=== PATIENT | female | born 1935 | race Caucasian/White ===

== ENCOUNTER 2020-05-05 01:46 | Day surgery (SDC) | payer MEDICARE, OTHER ==
[2020-05-06] MEDS ORDERED: Lasix20 MG PO (16:45)
[2020-05-06] MEDS ORDERED: ELIQUIS5 MG PO (16:45)
[2020-05-06] MEDS ORDERED: OMEP20ER PO (16:45)
[2020-05-06] MEDS ORDERED: POTA10T PO (16:46)
[2020-05-06] MEDS ORDERED: CLIN300 PO (16:46)
[2020-05-06] MEDS ORDERED: DILT120 PO (16:46)
== END 2020-05-05 22:41 | disposition home or self-care (01) ==
LOC: WOUND 01:46
DX: S80.12XA Contusion of left lower leg, initial encounter (principal); S81.802A Unspecified open wound, left lower leg, initial encounter; I96 Gangrene, not elsewhere classified; I10 Essential (primary) hypertension; J44.9 Chronic obstructive pulmonary disease, unspecified; I48.91 Unspecified atrial fibrillation; I35.0 Nonrheumatic aortic (valve) stenosis; H26.9 Unspecified cataract; M19.90 Unspecified osteoarthritis, unspecified site; M06.9 Rheumatoid arthritis, unspecified; F17.210 Nicotine dependence, cigarettes, uncomplicated; Z88.0 Allergy status to penicillin; Z79.01 Long term (current) use of anticoagulants; Z79.899 Other long term (current) drug therapy; X58.XXXA Exposure to other specified factors, initial encounter

== ENCOUNTER 2020-05-07 09:52 | Day surgery (SDC) | payer MEDICARE, OTHER ==
[~2020-05-07] VITALS: Ht 167.6 cm; Wt 69.0 kg
[~2020-05-07 09:52] MED LIST: CLIN300 PO; DILT120 PO; ELIQUIS5 MG PO; Lasix20 MG PO; OMEP20ER PO; POTA10T PO
--- NOTE | 2020-05-07 13:27 | NUR ---
PT RETURNED TO RECOVERY ROOM IN A RECLINER. RIGHT RADIAL TR BAND SITE SOFT NON-TENDER WITH NO HEMATOMA, NO PULSATILE BLEEDING AND WRIST BOARD IN PLACE. PT DENIES CHEST PAIN. CALL LIGHT IN REACH AND PT DRINKING COFFEE.
--- NOTE | 2020-05-07 14:50 | NUR ---
FULL REPORT PROVIDED JESSICA JOHNSON TO ASSUME CARE OF PT IN RECOVERY ROOM.
--- NOTE | 2020-05-07 16:28 | NUR ---
IV DC'D, CATH INTACT. PT AND DAUGHTER VERBALIZED UNDERSTANDING OF DC INSTRUCTIONS AND FOLLOW UP INSTRUCTIONS. PT OUT TO CAR VIA W/C, SPLINT AND SLING IN PLACE ON RIGHT ARM.
== END 2020-05-07 23:14 | disposition home or self-care (01) ==
LOC: MHTC 09:52
PROC: B201YZZ Plain Radiography of Multiple Coronary Arteries using Other Contrast (ICD-10-PCS; principal; 2020-05-07)
PROC: 4A023N7 Measurement of Cardiac Sampling and Pressure, Left Heart, Percutaneous Approach (ICD-10-PCS; principal; 2020-05-07)
DX: I08.0 Rheumatic disorders of both mitral and aortic valves (principal); I27.20 Pulmonary hypertension, unspecified; I11.0 Hypertensive heart disease with heart failure; I50.9 Heart failure, unspecified; J44.9 Chronic obstructive pulmonary disease, unspecified; Z88.0 Allergy status to penicillin; Z79.899 Other long term (current) drug therapy; I48.91 Unspecified atrial fibrillation
CPT/HCPCS: 76937; 93454; 99152; 99153; C1769; C1894; J1644; J2250; J3010; J7030; J7050; Q9967

== ENCOUNTER 2020-05-19 00:17 | Day surgery (SDC) | payer MEDICARE, OTHER | END 2020-05-19 22:47 | disposition home or self-care (01) | LOC: WOUND 00:17 | DX: S00-T88 Injury, poisoning and certain other consequences of external causes (principal); S81.812S Laceration without foreign body, left lower leg, sequela | CPT/HCPCS: G0463 ==

== ENCOUNTER 2020-05-26 00:40 | Day surgery (SDC) | payer MEDICARE, OTHER | END 2020-05-26 22:50 | disposition home or self-care (01) | LOC: WOUND 00:40 | DX: S00-T88 Injury, poisoning and certain other consequences of external causes (principal); S81.812S Laceration without foreign body, left lower leg, sequela | CPT/HCPCS: G0463 ==

== ENCOUNTER 2020-06-05 00:40 | Day surgery (SDC) | payer MEDICARE, OTHER | END 2020-06-05 23:09 | disposition home or self-care (01) | LOC: WOUND 00:40 | DX: S81.802A Unspecified open wound, left lower leg, initial encounter (principal); I96 Gangrene, not elsewhere classified; L97.822 Non-pressure chronic ulcer of other part of left lower leg with fat layer exposed; I87.2 Venous insufficiency (chronic) (peripheral); I49.9 Cardiac arrhythmia, unspecified; M19.90 Unspecified osteoarthritis, unspecified site; M06.9 Rheumatoid arthritis, unspecified; H26.9 Unspecified cataract; I10 Essential (primary) hypertension; J44.9 Chronic obstructive pulmonary disease, unspecified; I48.91 Unspecified atrial fibrillation; I35.0 Nonrheumatic aortic (valve) stenosis; Z88.0 Allergy status to penicillin; Z79.01 Long term (current) use of anticoagulants; Z79.899 Other long term (current) drug therapy; X58.XXXA Exposure to other specified factors, initial encounter ==

== ENCOUNTER 2020-06-16 01:07 | Day surgery (SDC) | payer MEDICARE, OTHER | END 2020-06-16 23:28 | disposition home or self-care (01) | LOC: WOUND 01:07 | DX: S00-T88 Injury, poisoning and certain other consequences of external causes (principal); S81.812S Laceration without foreign body, left lower leg, sequela | CPT/HCPCS: G0463 ==

== ENCOUNTER 2020-06-26 02:17 | Day surgery (SDC) | payer MEDICARE, OTHER | END 2020-06-26 23:08 | disposition home or self-care (01) | LOC: WOUND 02:17 | DX: S80.12XS Contusion of left lower leg, sequela (principal); S81.812D Laceration without foreign body, left lower leg, subsequent encounter; I10 Essential (primary) hypertension; J44.9 Chronic obstructive pulmonary disease, unspecified; Z79.899 Other long term (current) drug therapy | CPT/HCPCS: G0463 ==

== ENCOUNTER 2020-08-17 12:01 | Emergency (ER) | payer MEDICARE, OTHER ==
[~2020-08-17] VITALS: Ht 165.1 cm; Wt 63.5 kg
[2020-08-17 13:20] LABS: BASOPHILS ABSOLUTE AUTO 0.08 K/mm3 (0.00-0.23); BASOPHILS PERCENT AUTO 1 % (0-2); EOSINOPHILS ABSOLUTE AUTO 0.43 K/mm3 (0.00-0.68); EOSINOPHILS PERCENT AUTO 4 % (0-6); Hematocrit 26.9 % (33.0-51.0); Hemoglobin 8.3 g/dL (11.5-16.0); IMMATURE GRAN ABSOLUTE AUTO 0.04 K/mm3 (0.00-0.10); IMMATURE GRAN PERCENT AUTO 0 % (0-1); LYMPHOCYTES PERCENT AUTO 16 % (21-46); MONOCYTES ABSOLUTE AUTO 1.09 K/mm3 (0.16-1.47); MONOCYTES PERCENT AUTO 9 % (4-13); Mean Corpuscular HGB 25.6 pg (26.0-34.0); Mean Corpuscular HGB Conc 30.9 g/dL (31.5-36.5); Mean Corpuscular Volume 83 fL (80-100); Mean Platelet Volume 9.2 fL (9.1-12.4); NEUTROPHILS ABSOLUTE AUTO 8.25 K/mm3 (1.96-9.15); NEUTROPHILS PERCENT AUTO 70 % (41-73); Platelet Count 308 K/mm3 (150-400); RDW Coefficient Variation 17.8 % (11.7-14.2); RDW Standard Deviation 54.3 fL (35.1-46.3); Red Blood Cell Count 3.24 M/mm3 (3.80-5.20); White Blood Cell Count 11.79 K/mm3 (4.00-11.30)
[2020-08-17 13:26] LABS: Albumin, Blood 3.5 g/dL (3.4-5.0); Albumin/Globulin Ratio 0.9 (0.8-1.8); Bilirubin, Total 0.6 mg/dL (0.1-1.0); Bun/Creatinine Ratio 24.5 (12.0-20.0); Calcium, Blood 9.4 mg/dL (8.5-10.1); Creatinine, Blood 1.39 mg/dL (0.40-1.00); Globulin, Blood 3.7 g/dL (2.2-4.0); Total Protein, Blood 7.2 g/dL (6.4-8.2)
== END 2020-08-17 18:04 | disposition home or self-care (01) ==
LOC: ER 12:01
PROVIDERS: Emergency Medicine
DX: R55 Syncope and collapse (principal); N18.9 Chronic kidney disease, unspecified; D64.9 Anemia, unspecified; M19.011 Primary osteoarthritis, right shoulder; M19.041 Primary osteoarthritis, right hand; I25.10 Atherosclerotic heart disease of native coronary artery without angina pectoris; F17.210 Nicotine dependence, cigarettes, uncomplicated; Z88.0 Allergy status to penicillin; Z79.01 Long term (current) use of anticoagulants; Z79.899 Other long term (current) drug therapy
CPT/HCPCS: 36415; 70450; 72125; 73030; 73130; 80053; 83880; 84484; 85025; 93005; 93010; 93306; 99285-25; A9270

== ENCOUNTER 2020-08-27 11:46 | Emergency (ER) | payer MEDICARE, OTHER ==
[~2020-08-27] VITALS: Ht 165.1 cm; Wt 64.4 kg
[2020-08-27 12:52] LABS: BASOPHILS ABSOLUTE AUTO 0.11 K/mm3 (0.00-0.23); BASOPHILS PERCENT AUTO 1 % (0-2); EOSINOPHILS ABSOLUTE AUTO 0.68 K/mm3 (0.00-0.68); EOSINOPHILS PERCENT AUTO 6 % (0-6); Hematocrit 29.2 % (33.0-51.0); Hemoglobin 9.1 g/dL (11.5-16.0); IMMATURE GRAN ABSOLUTE AUTO 0.04 K/mm3 (0.00-0.10); IMMATURE GRAN PERCENT AUTO 0 % (0-1); LYMPHOCYTES ABSOLUTE AUTO 2.03 K/mm3 (0.84-5.20); LYMPHOCYTES PERCENT AUTO 18 % (21-46); MONOCYTES ABSOLUTE AUTO 0.91 K/mm3 (0.16-1.47); MONOCYTES PERCENT AUTO 8 % (4-13); Mean Corpuscular HGB Conc 31.2 g/dL (31.5-36.5); Mean Corpuscular Volume 83 fL (80-100); Mean Platelet Volume 8.6 fL (9.1-12.4); NEUTROPHILS PERCENT AUTO 67 % (41-73); Platelet Count 352 K/mm3 (150-400); RDW Standard Deviation 55.2 fL (35.1-46.3); White Blood Cell Count 11.57 K/mm3 (4.00-11.30)
[2020-08-27 13:11] LABS: Source, Urine Voided
[2020-08-27 13:17] LABS: Alanine Aminotransfer (ALT/SGP 20 U/L (12-78); Albumin, Blood 3.4 g/dL (3.4-5.0); Alk Phos 93 U/L (50-136); Anion Gap 6 mmol/L (6-16); Aspartate Aminotrans (AST/SGOT 21 U/L (12-37); Bilirubin, Total 0.5 mg/dL (0.1-1.0); Blood Urea Nitrogen 45 mg/dL (8-24); Bun/Creatinine Ratio 30.8 (12.0-20.0); CO2, Blood 24 mmol/L (21-32); Calcium, Blood 9.1 mg/dL (8.5-10.1); Chloride, Blood 110 mmol/L (98-108); Creatinine, Blood 1.46 mg/dL (0.40-1.00); Globulin, Blood 3.5 g/dL (2.2-4.0); Glomerular Filtration Rate 36 (60-); Glucose, Blood 126 mg/dL (70-99); Potassium, Blood 4.4 mmol/L (3.5-5.5); Sodium, Blood 140 mmol/L (136-145); Total Protein, Blood 6.9 g/dL (6.4-8.2); Troponin I <0.015 ng/mL (0.000-0.040)
[2020-08-27 13:19] LABS: Bilirubin, Urine Neg (Neg); Blood, Urine Neg (Neg); Glucose Qualitative, Urine Neg (Neg); Ketones, Urine Neg (Neg); Leukocyte Esterase, Urine 2+ (Neg); Nitrite, Urine Neg (Neg); Protein, Urine 1+ (Neg); Specific Gravity, Urine 1.015 (1.003-1.022); Urobilinogen, Urine NORM (Normal); pH, Urine 6.5 (5.0-8.0)
[2020-08-27 13:22] LABS: Appearance, Urine Clear (Clear); Color, Urine Yellow (P-Yellow)
[2020-08-27 13:25] LABS: Red Blood Cells, Urine 0-2 /hpf (0-2); Squamous Epithelial Cells Few /hpf (Few)
[2020-08-27 13:26] LABS: Bacteria Mod /hpf
== END 2020-08-27 16:33 | disposition home or self-care (01) ==
LOC: ER 11:46
PROVIDERS: Emergency Medicine
DX: R55 Syncope and collapse (principal); I25.10 Atherosclerotic heart disease of native coronary artery without angina pectoris; I48.91 Unspecified atrial fibrillation; J44.9 Chronic obstructive pulmonary disease, unspecified; F17.210 Nicotine dependence, cigarettes, uncomplicated; Z88.0 Allergy status to penicillin; Z79.01 Long term (current) use of anticoagulants; Z79.899 Other long term (current) drug therapy
CPT/HCPCS: 36415; 71045; 80053; 81001; 83880; 84484; 85025; 87086; 93005; 93010; 99284-25

== ENCOUNTER 2021-02-25 00:21 | Day surgery (SDC) | payer MEDICARE, OTHER ==
[2021-02-25] MEDS ORDERED: AMLO5 PO (15:11)
[2021-02-25] MEDS ORDERED: MAGNESIUM OXID500 MG PO (15:12)
== END 2021-02-25 15:15 | disposition home or self-care (01) ==
LOC: ATC 00:21
DX: D50.9 Iron deficiency anemia, unspecified (principal); J44.9 Chronic obstructive pulmonary disease, unspecified; I48.0 Paroxysmal atrial fibrillation; I73.9 Peripheral vascular disease, unspecified; I50.9 Heart failure, unspecified; I13.0 Hypertensive heart and chronic kidney disease with heart failure and stage 1 through stage 4 chronic kidney disease, or unspecified chronic kidney disease; N18.30 Chronic kidney disease, stage 3 unspecified; I35.0 Nonrheumatic aortic (valve) stenosis; I27.20 Pulmonary hypertension, unspecified; F17.200 Nicotine dependence, unspecified, uncomplicated; Z88.0 Allergy status to penicillin; Z79.01 Long term (current) use of anticoagulants; Z86.711 Personal history of pulmonary embolism; Z96.649 Presence of unspecified artificial hip joint
CPT/HCPCS: 96365; J2916

== ENCOUNTER 2021-03-04 00:14 | Day surgery (SDC) | payer MEDICARE, OTHER ==
[~2021-03-04 00:14] MED LIST changes: +AMLO5 PO; +MAGNESIUM OXID500 MG PO
== END 2021-03-04 15:30 | disposition home or self-care (01) ==
LOC: ATC 00:14
DX: D50.9 Iron deficiency anemia, unspecified (principal); I13.0 Hypertensive heart and chronic kidney disease with heart failure and stage 1 through stage 4 chronic kidney disease, or unspecified chronic kidney disease; N18.30 Chronic kidney disease, stage 3 unspecified; I50.9 Heart failure, unspecified; F17.210 Nicotine dependence, cigarettes, uncomplicated; J44.9 Chronic obstructive pulmonary disease, unspecified; M19.90 Unspecified osteoarthritis, unspecified site; I83.93 Asymptomatic varicose veins of bilateral lower extremities; K21.9 Gastro-esophageal reflux disease without esophagitis; M81.0 Age-related osteoporosis without current pathological fracture; Z79.01 Long term (current) use of anticoagulants; Z88.0 Allergy status to penicillin
CPT/HCPCS: 96365; J2916

== ENCOUNTER 2021-03-11 01:00 | Day surgery (SDC) | payer MEDICARE, OTHER | END 2021-03-11 15:19 | disposition home or self-care (01) | LOC: ATC 01:00 | DX: D50.9 Iron deficiency anemia, unspecified (principal); N18.30 Chronic kidney disease, stage 3 unspecified; I48.0 Paroxysmal atrial fibrillation; Z79.01 Long term (current) use of anticoagulants; Z88.0 Allergy status to penicillin; Z79.899 Other long term (current) drug therapy | CPT/HCPCS: 96365; J2916 ==

== ENCOUNTER 2021-03-18 00:53 | Day surgery (SDC) | payer MEDICARE, OTHER | END 2021-03-18 11:18 | disposition home or self-care (01) | LOC: ATC 00:53 | DX: D50.9 Iron deficiency anemia, unspecified (principal); J44.9 Chronic obstructive pulmonary disease, unspecified; I48.0 Paroxysmal atrial fibrillation; I73.9 Peripheral vascular disease, unspecified; I13.0 Hypertensive heart and chronic kidney disease with heart failure and stage 1 through stage 4 chronic kidney disease, or unspecified chronic kidney disease; I50.9 Heart failure, unspecified; N18.30 Chronic kidney disease, stage 3 unspecified; I27.20 Pulmonary hypertension, unspecified; F17.200 Nicotine dependence, unspecified, uncomplicated; K21.9 Gastro-esophageal reflux disease without esophagitis; Z88.0 Allergy status to penicillin; Z79.01 Long term (current) use of anticoagulants; Z96.649 Presence of unspecified artificial hip joint | CPT/HCPCS: 96365; J2916 ==

== ENCOUNTER → 2021-07-13 | Outpatient (CLI) | payer MEDICARE, OTHER ==
[2021-07-13 15:17] LABS: BASOPHILS ABSOLUTE AUTO 0.04 K/mm3 (0.00-0.23); BASOPHILS PERCENT AUTO 0 % (0-2); EOSINOPHILS ABSOLUTE AUTO 0.08 K/mm3 (0.00-0.68); EOSINOPHILS PERCENT AUTO 1 % (0-6); Hematocrit 35.9 % (33.0-51.0); Hemoglobin 11.5 g/dL (11.5-16.0); IMMATURE GRAN ABSOLUTE AUTO 0.05 K/mm3 (0.00-0.10); IMMATURE GRAN PERCENT AUTO 0 % (0-1); LYMPHOCYTES ABSOLUTE AUTO 1.24 K/mm3 (0.84-5.20); LYMPHOCYTES PERCENT AUTO 10 % (21-46); MONOCYTES ABSOLUTE AUTO 0.58 K/mm3 (0.16-1.47); MONOCYTES PERCENT AUTO 5 % (4-13); Mean Corpuscular HGB 29.3 pg (26.0-34.0); Mean Corpuscular Volume 92 fL (80-100); Mean Platelet Volume 8.5 fL (9.1-12.4); NEUTROPHILS ABSOLUTE AUTO 9.89 K/mm3 (1.96-9.15); NEUTROPHILS PERCENT AUTO 83 % (41-73); Platelet Count 260 K/mm3 (150-400); RDW Coefficient Variation 15.8 % (11.7-14.2); RDW Standard Deviation 52.9 fL (35.1-46.3); Red Blood Cell Count 3.92 M/mm3 (3.80-5.20); White Blood Cell Count 11.88 K/mm3 (4.00-11.30)
[2021-07-13 15:24] LABS: Bun/Creatinine Ratio 17.1 (12.0-20.0); Calcium, Blood 8.9 mg/dL (8.5-10.1); Creatinine, Blood 1.4 mg/dL (0.40-1.00)
== END | disposition home or self-care (01) ==
LOC: LAB 15:13 → LAB SHORT 15:13
PROVIDERS: Physician Assistant Medical
DX: R19.7 Diarrhea, unspecified (principal)
CPT/HCPCS: 80048; 85025

== ENCOUNTER 2022-02-14 00:52 | Day surgery (SDC) | payer MEDICARE, OTHER ==
[~2022-02-14 00:52] MED LIST changes: +ATOR10 PO; +PRED5 PO
== END 2022-02-14 14:41 | disposition home or self-care (01) ==
LOC: ATC 00:52
DX: D50.9 Iron deficiency anemia, unspecified (principal)
CPT/HCPCS: 96365; J2916

== ENCOUNTER 2022-02-21 01:02 | Day surgery (SDC) | payer MEDICARE, OTHER | END 2022-02-21 14:53 | disposition home or self-care (01) | LOC: ATC 01:02 | DX: D50.9 Iron deficiency anemia, unspecified (principal); Z88.0 Allergy status to penicillin; Z88.8 Allergy status to other drugs, medicaments and biological substances; M19.90 Unspecified osteoarthritis, unspecified site; J44.9 Chronic obstructive pulmonary disease, unspecified; I13.0 Hypertensive heart and chronic kidney disease with heart failure and stage 1 through stage 4 chronic kidney disease, or unspecified chronic kidney disease; N18.30 Chronic kidney disease, stage 3 unspecified; I50.9 Heart failure, unspecified; I73.9 Peripheral vascular disease, unspecified; K21.9 Gastro-esophageal reflux disease without esophagitis; M35.3 Polymyalgia rheumatica; I48.91 Unspecified atrial fibrillation; Z79.01 Long term (current) use of anticoagulants; I25.10 Atherosclerotic heart disease of native coronary artery without angina pectoris | CPT/HCPCS: 96365; J2916 ==

== ENCOUNTER 2022-02-28 02:11 | Day surgery (SDC) | payer MEDICARE, OTHER | END 2022-02-28 14:55 | disposition home or self-care (01) | LOC: ATC 02:11 | DX: D50.9 Iron deficiency anemia, unspecified (principal); I25.10 Atherosclerotic heart disease of native coronary artery without angina pectoris; I48.91 Unspecified atrial fibrillation; I13.0 Hypertensive heart and chronic kidney disease with heart failure and stage 1 through stage 4 chronic kidney disease, or unspecified chronic kidney disease; I50.9 Heart failure, unspecified; N18.30 Chronic kidney disease, stage 3 unspecified; M35.3 Polymyalgia rheumatica; K21.9 Gastro-esophageal reflux disease without esophagitis; K76.0 Fatty (change of) liver, not elsewhere classified; J44.9 Chronic obstructive pulmonary disease, unspecified; D68.59 Other primary thrombophilia; R41.81 Age-related cognitive decline; Z79.01 Long term (current) use of anticoagulants | CPT/HCPCS: J2916 ==

== ENCOUNTER 2022-03-17 14:50 | Inpatient (IN) | payer MEDICARE, OTHER ==
[~2022-03-17] VITALS: Ht 167.6 cm; Wt 68.5 kg
[2022-03-17 18:49] LABS: BASOPHILS ABSOLUTE AUTO 0.04 K/mm3 (0.00-0.23); BASOPHILS PERCENT AUTO 0 % (0-2); EOSINOPHILS ABSOLUTE AUTO 0.11 K/mm3 (0.00-0.68); EOSINOPHILS PERCENT AUTO 1 % (0-6); Hematocrit 31.8 % (33.0-51.0); Hemoglobin 10.6 g/dL (11.5-16.0); IMMATURE GRAN ABSOLUTE AUTO 0.03 K/mm3 (0.00-0.10); IMMATURE GRAN PERCENT AUTO 0 % (0-1); LYMPHOCYTES ABSOLUTE AUTO 1.61 K/mm3 (0.84-5.20); LYMPHOCYTES PERCENT AUTO 16 % (21-46); MONOCYTES ABSOLUTE AUTO 1.07 K/mm3 (0.16-1.47); MONOCYTES PERCENT AUTO 10 % (4-13); Mean Corpuscular HGB 31.2 pg (26.0-34.0); Mean Corpuscular HGB Conc 33.3 g/dL (31.5-36.5); Mean Corpuscular Volume 94 fL (80-100); Mean Platelet Volume 8.6 fL (9.1-12.4); NEUTROPHILS PERCENT AUTO 72 % (41-73); Platelet Count 249 K/mm3 (150-400); RDW Coefficient Variation 14.2 % (11.7-14.2); RDW Standard Deviation 48.2 fL (35.1-46.3); White Blood Cell Count 10.36 K/mm3 (4.00-11.30)
[2022-03-17 19:34] LABS: Albumin, Blood 3.5 g/dL (3.4-5.0); Albumin/Globulin Ratio 1.2 (0.8-1.8); Bilirubin, Total 1.1 mg/dL (0.1-1.0); Bun/Creatinine Ratio 17.7 (12.0-20.0); Calcium, Blood 9.2 mg/dL (8.5-10.1); Creatinine, Blood 1.24 mg/dL (0.40-1.00); Potassium, Blood 4.4 mmol/L (3.5-5.5); Total Protein, Blood 6.5 g/dL (6.4-8.2)
--- NOTE | 2022-03-18 05:10 | NUR ---
ASSUMED CARE OF PT AT 1949. PT IS ALERT TO SELF AND PLACE ONLY. ARRIVES TO THE FLOOR AT 1950 AND IS AWAITING HIP SURGERY. HAS BEEN NPO SINCE MIDNIGHT. VITAL SIGNS STABLE. PT RESTS BETWEEN CARES AND IS ABLE TO SLEEP 8+ HOURS THIS SHIFT. NO COMPLAINTS OF PAIN, HAS PRN MORPHINE AVAILABLE. WILL CONTINUE TO MONITOR AND GIVE REPORT TO ONCOMING RN.
[2022-03-18] MEDS ORDERED: VITAMIN D31000 UNI1 PO (09:25)
[2022-03-18] MEDS ORDERED: CALCIUM CIT 311 EAC7 PO (09:25)
[2022-03-18] MEDS ORDERED: PRED1 PO (09:26)
[2022-03-18] MEDS ORDERED: Coq-1030 MG PO (09:26)
--- NOTE | 2022-03-18 10:47 | NUR ---
Spiritual Care Request. Followed up on spiritual care request. Pt. is awake and erlcomes my visit. CONNOR is present. After introductions CONNOR excuses himself. Pt. is pleasant. Pt. does display evidence of pain in her hip/thigh. Encourage Pt. with a calming presence and theraputic listening. Pt. displays evidence of agreement. Prayed with Pt. Pt. verbalized gratitude for the spiritual care visit.
[2022-03-18 11:22] LABS: Source, Urine Foley catheter
[2022-03-18 11:25] LABS: Appearance, Urine Hazy (Clear); Bilirubin, Urine Neg (Neg); Blood, Urine 5+ (Neg); Color, Urine Yellow (P-Yellow); Glucose Qualitative, Urine Neg (Neg); Ketones, Urine 3+ (Neg); Leukocyte Esterase, Urine 3+ (Neg); Nitrite, Urine Neg (Neg); Protein, Urine 2+ (Neg); Specific Gravity, Urine 1.015 (1.003-1.022); Urobilinogen, Urine NORM (Normal)
[2022-03-18 11:35] LABS: Red Blood Cells, Urine 25-50 /hpf (0-2); Squamous Epithelial Cells Rare /hpf (Few); White Blood Cells, Urine 25-50 /hpf (0-5)
[2022-03-18 11:36] LABS: Bacteria Mod /hpf
--- NOTE | 2022-03-18 16:04 | NUR ---
SHIFT SUMMARY: PT A/O X 2, BEDREST AT THIS TIME, PLEASANT AND COOPERATIVE. HIP PAIN CURRENTLY MANAGED WITH MORPHINE 2 MG. FAMILY PRESENT AT THIS TIME AND PT IS PLAYING CRIBBAGE. PT TO BE NPO AT [facility] FOR HIP REPLACEMENT PROCEDURE TOMORROW. WILL REPORT TO DOUGLAS LOPEZ TAKING OVER CARE.
--- NOTE | 2022-03-18 17:02 | NUR ---
ASSUMED CARE OF PATIENT AT 1630. PATIENT ALERT AND PLAYING CARDS WITH FAMILY MEMBER. RESTING IN BED. DENIES PAIN TO LEFT HIP, EXCEPT WITH MOVEMENT. BLE WARM, DENIES NUMBNESS BUT REPORTS SOME TINGLING.
--- NOTE | 2022-03-19 00:04 | NUR ---
PT WAKES UP CONFUSED AND DISORIENTED. PT REMOVES IV AND IS TRYING TO CLIMB OUT OF BED. PT WILL NOT LET STAFF PERFORM CARES, AND WILL NOT LET US PLACE NEW IV.
--- NOTE | 2022-03-19 05:38 | NUR ---
ASSUMED CARE OF PT AT 1900. PT IS ALERT TO SELF ONLY AND IS ON BEDREST. AWAITING SURGICAL REPAIR FOR A HIP FRACTURE, SCHEDULED FOR 1000 THIS MORNING, CSM IN ALL EXTREMITIES. PAIN IS MANAGED WITH PRN MORPHINE. DURING THE NIGHT PT WOKE AND WAS CONFUSED AND UNABLE TO STATE WHY THEY WERE IN THE HOSPITAL. PT HAD REMOVED IV IN L-AC, CANNULA WAS INTACT. NEW IV WAS PLACED IN R-AC. PT BP HAS BEEN ELEVATED, PRN HYDRALAZINE WAS GIVEN WITH GOOD RESULTS. PT ABLE TO SLEEP 5+ HOURS THIS SHIFT. WILL CONTINUE TO MONITOR AND GIVE REPORT TO DAYSHIFT RN.
--- NOTE | 2022-03-19 17:22 | NUR ---
SHIFT SUMMARY PT A/O X2; PLEASANT AND COOPERATIVE WITH CARE. PT'S FAMILY AT THE BEDSIDE TO HELP WITH CARE AND ORIENTATION. PT'S SURGERY MOVED TO TOMORROW DUE TO THE PT HAVING A UTI AND NEEDING A COURSE OF ABX PRIOR TO SURGERY. MACKENZIE PATENT AND DRAINING DARK URINE. BLOOD NOTED IN URINE. PT'S PAIN CONTROLLED PER EMR. PT TO BE NPO AT MIDNIGHT IN ORDER TO HAVE SURGERY TOMORROW.
[2022-03-20 04:45] LABS: BASOPHILS ABSOLUTE AUTO 0.04 K/mm3 (0.00-0.23); BASOPHILS PERCENT AUTO 0 % (0-2); EOSINOPHILS ABSOLUTE AUTO 0.26 K/mm3 (0.00-0.68); EOSINOPHILS PERCENT AUTO 2 % (0-6); Hematocrit 32.9 % (33.0-51.0); Hemoglobin 11.1 g/dL (11.5-16.0); IMMATURE GRAN ABSOLUTE AUTO 0.05 K/mm3 (0.00-0.10); IMMATURE GRAN PERCENT AUTO 1 % (0-1); LYMPHOCYTES ABSOLUTE AUTO 1.81 K/mm3 (0.84-5.20); LYMPHOCYTES PERCENT AUTO 17 % (21-46); MONOCYTES PERCENT AUTO 10 % (4-13); Mean Corpuscular HGB 31.2 pg (26.0-34.0); Mean Corpuscular HGB Conc 33.7 g/dL (31.5-36.5); Mean Corpuscular Volume 92 fL (80-100); Mean Platelet Volume 8.8 fL (9.1-12.4); NEUTROPHILS ABSOLUTE AUTO 7.53 K/mm3 (1.96-9.15); NEUTROPHILS PERCENT AUTO 70 % (41-73); Platelet Count 288 K/mm3 (150-400); RDW Coefficient Variation 13.8 % (11.7-14.2); RDW Standard Deviation 47.3 fL (35.1-46.3); Red Blood Cell Count 3.56 M/mm3 (3.80-5.20); White Blood Cell Count 10.79 K/mm3 (4.00-11.30)
[2022-03-20 05:09] LABS: Bilirubin, Total 0.8 mg/dL (0.1-1.0); Bun/Creatinine Ratio 27.7 (12.0-20.0); Calcium, Blood 8.7 mg/dL (8.5-10.1); Creatinine, Blood 0.98 mg/dL (0.40-1.00); Globulin, Blood 3.1 g/dL (2.2-4.0); Magnesium, Blood 2.4 mg/dL (1.6-2.4); Phosphorus, Blood 3.4 mg/dL (2.5-4.9); Potassium, Blood 4.3 mmol/L (3.5-5.5); Total Protein, Blood 6.1 g/dL (6.4-8.2)
--- NOTE | 2022-03-20 06:26 | NUR ---
SUMMARY PT ONLY COMPLAINT HAS BEEN HEADACHE. PT HAD ONLIY A MILD PERIOD OF CONFUSION LAST NIGHT. PT PLESANT AND COOPERATIVE. PT EAGER TO HAVE PROCEDURE TODAY.
--- NOTE | 2022-03-20 07:45 | NUR ---
0700-recvd report from previous RN flakito. pt sleeping, bed in lowest posiiton, bedrails up x 2, call light within reach 0735-this RN learned surgical intervention postponed to 03/21 r/t orthopedist on-call being up all last night doing emergent procedures. Dr. Damon and pt's daughter notifed. 0740-dr damon rounding on pt, notifed her of surgical procedure postponement. pt's daughter to visit.
[2022-03-20 09:27] LABS: SARS-Cov-2 (COVID-19) PCR, MMC NEGATIVE (NEGATIVE)
--- NOTE | 2022-03-20 13:48 | NUR ---
pt and daughter in room; provided pt with analgesia per mar.
--- NOTE | 2022-03-20 16:50 | NUR ---
SHIFT SUMMARY: A/O X 4, FORGETFUL AT TIMES BUT EASILY REORIENTED. VSS, NO ACUTE CHANGES. PT REPORTS PAIN CONTROLLED TO THE POINT THAT SHE IS ABLE TO SLEEP PER MAR. PT REPORTS IV NARCOTIC MADE HER "FEEL WEIRD" AND SHE DID NOT LIKE THIS. PT AND FAMILY PROVIDED WITH INFORMATION REGARDING PLAN TO MOVE PT TO RM 13 PRIOR TO SURGERY. THEY ALL AGREE WITH THIS PLAN. CAPILLARY REFILL AFFECTED LIMB <3 SECONDS. PT DENIES ANY N/V, TOLERATED PO INTAKE. MACKENZIE CATHETER PATENT/DRAINING CLEAR YELLOW URINE >350 ML THIS SHIFT. PT'S FAMILY VISITED T/O SHIFT.
--- NOTE | 2022-03-21 04:09 | NUR ---
SUMMARY PT PAIN MANAGED WELL. PT MACKENZIE DRAINING WELL. PT HAS BEEN NPO SINCE [place]. CALL LIGHT IN REACH AND BED ALARM ON.
--- NOTE | 2022-03-21 10:58 | NUR ---
CHANGED DRESSING TO RFA SKIN TEAR
--- NOTE | 2022-03-21 11:59 | NUR ---
NOTIFIED CARDIOLOGY TECH.
--- NOTE | 2022-03-21 12:54 | NUR ---
PT TO OR
--- NOTE | 2022-03-21 13:10 | NUR ---
RAC IV SITE D&I/FLUSHED WITH NS/PATENT
--- NOTE | 2022-03-21 14:07 | NUR ---
DC'D RIGHT AC IV.
--- NOTE | 2022-03-21 17:23 | NUR ---
PT ARRIVED TO UNIT FROM PACU SLEEPING SOUNDLY. VSS. RESPIRATIONS E/U ON 3L NC, 02 SATS 98%. DAUGHTER, ARACELI, AT BEDSIDE. AQUACEL DRESSING TO L POSTERIOR HIP CDI. SKIN TEAR TO RFA UNCOVERED UPON ARRIVAL TO ROOM, APPEARS TO HAVE BLISTER FORMED WHERE SKIN WAS OPEN TO TEAR. PLACED XEROFORM GAUZE AND KERLEX TO SITE AFTER CLEANING. BED ALARM ON.
--- NOTE | 2022-03-21 18:39 | NUR ---
SUMMARY NO ACUTE CHANGES SINCE ARRIVING FROM PACU TO FLOOR. PT AWOKE AT 1840, SMILING AND IN NO APPARENT DISTRESS. BED ALARM ON. DAUGHTER AT BEDSIDE.
[2022-03-22 06:13] LABS: BASOPHILS ABSOLUTE AUTO 0.02 K/mm3 (0.00-0.23); BASOPHILS PERCENT AUTO 0 % (0-2); EOSINOPHILS PERCENT AUTO 0 % (0-6); Hematocrit 31.3 % (33.0-51.0); Hemoglobin 10.5 g/dL (11.5-16.0); IMMATURE GRAN ABSOLUTE AUTO 0.04 K/mm3 (0.00-0.10); IMMATURE GRAN PERCENT AUTO 0 % (0-1); LYMPHOCYTES ABSOLUTE AUTO 0.91 K/mm3 (0.84-5.20); LYMPHOCYTES PERCENT AUTO 6 % (21-46); MONOCYTES ABSOLUTE AUTO 1.62 K/mm3 (0.16-1.47); MONOCYTES PERCENT AUTO 10 % (4-13); Mean Corpuscular HGB 30.9 pg (26.0-34.0); Mean Corpuscular HGB Conc 33.5 g/dL (31.5-36.5); Mean Corpuscular Volume 92 fL (80-100); Mean Platelet Volume 8.6 fL (9.1-12.4); NEUTROPHILS ABSOLUTE AUTO 13.14 K/mm3 (1.96-9.15); NEUTROPHILS PERCENT AUTO 84 % (41-73); Platelet Count 321 K/mm3 (150-400); RDW Coefficient Variation 13.4 % (11.7-14.2); RDW Standard Deviation 45.2 fL (35.1-46.3); White Blood Cell Count 15.73 K/mm3 (4.00-11.30)
--- NOTE | 2022-03-22 07:12 | NUR ---
SHIFT SUMMARY POD1 L HIP REPAIR, PT WAS ALERT BUT CONFUSED THIS SHIFT WHICH APPEARED TO GET WORSE THE SHIFT WENT ON. PT WAS NOT IMPULSIVE OR TRYING TO GET UP BUT WAS PARANOID THAT THE STAFF WAS HACKING INTO HER ACCOUNTS AND AFTER HER MONEY. ATTEMPTED TO CALM AND REASSURE PT THAT SHE WAS SAFE AND STAFF WAS ONLY HERE TO HELP. FAMILY MEMEBER CAME IN AND ALSO TRIED TO HELP CALM HER DOWN. RESTRAINT ORDER OBTAINED BUT WAS ABLE TO MAKE IT THROUGH WITHOUT HAVING TO USE THEM. AROUND 0600 PT STARTED TO CLEAR UP AND WAS MORE ORIENTED TO WHERE SHE WAS AND WHY SHE WAS HERE. FAMILY MEMEBER AT BEDSIDE NOW. NO OTHER EVENTS THIS SHIFT. CALL LIGHT IN REACH, REPORT GIVEN TO DAY RN.
--- NOTE | 2022-03-22 14:00 | NUR ---
FAMILY CONCERNS PT'S FAMILY HAS BEEN AT THE PATIENT'S BEDSIDE FOR SUPPORT AND ASSISTANCE T/O THE DAY. THEY HAVE ASKED QUESTIONS AND HAVE SOME CONCERNS. QUESTIONS ANSWERED AND DR. JOEL NOTIFIED OF CONCERNS. HE ROUNDED ON THE PATIENT AND ANSWERED FAMILY QUESTIONS. THIS RN CLARIFIED HOME MEDICATION WITH DR. JOEL. ALSO DISCUSSED FLUCTUATION IN BP AND HR UPON STANDING. TELE PLACED. PLAN TO CHECK ORTHOSTATIC VS. WILL CONTINUE TO MONITOR.
--- NOTE | 2022-03-22 17:39 | NUR ---
SHIFT SUMMARY PT IS POD#1 FROM L TED HIP WITH DR. HOWARD. PT HAS BEEN OOB TODAY WITH THERAPY AND IS A 1-2 PERSON MINIMAL ASSIST. PT HAS HAD SOME MILD CONFUSION T/O THE DAY, SHE REORIENTS EASILY. SHE FOLLOWS DIRECTIONS BUT IS SLOW TO UNDERSTAND AND REQUIRES REPEATED DIRECTIONS. PT REQUIRES VERBAL COACHING WHEN STANDING, WALKING AND TRANSFERRING TO REMEMBER HIP PRECAUTIONS. PT DID REPORT DIZZINESS WHEN GETTING OOB WITH THERAPY, PER THERAPIST BP BECAME ELEVATED AND HR DECREASED UPON STANDING, DR. JOEL NOTIFIED. PT PLACED ON TELE MONITOR AND ZIOPATCH ORDERED X2 WEEKS ([facility] NOTIFIED). PT IS AFIB VS AFLUTTER ON TELE, DR. JOEL AWARE. ORTHOSTATIC VS CHECKED THIS EVENING, BP DROPPED FROM 156 SYSTOLIC WHILE LYING TO 119 SYSTOLIC WHILE SITTING, UPON STANDING SBP IMPROVED TO 132; PT DENIED DIZZINESS AT THE TIME ORTHOSTATIC VS CHECKED. HR REMAINED STABLE. DNR STATUS VERIFIED WITH PT AND HER DAUGHTER ARACELI, ORDER VERIFIED WITH SEE LOPEZ PRIOR TO DNR BAND PLACEMENT. PAIN HAS BEEN MANAGED WITH TYLENOL, PT IS TOLERATING WELL, FAMILY ON BOARD WITH PAIN MANAGEMENT PLAN. PT HAS SAT UP TO THE CHAIR FOR MEALS TODAY AND TOLERATED WELL. FAMILY EDUCATED REGARDING IMPORTANCE OF OOB AND MOVEMENT. PT'S FAMILY HAS BEEN AT THE BEDSIDE MUCH OF THE DAY, THEY ARE SUPPORTIVE AND ASK QUESTIONS. FAMILY IS INVOLVED IN PT'S CARE, PT RESPONDS WELL TO FAMILY. WILL MONITOR UNTIL REPORT TO ANTONIO LOPEZ.
--- NOTE | 2022-03-23 05:02 | NUR ---
SHIFT SUMMARY A/O TO SELF AND SURROUNDINGS, USING CALL LIGHT APPROPRIATLEY. POD2 L HIP REPAIR, AQUACEL DRESSING CHANGED THIS SHIFT. NO PAIN REPORTED THROUGHOUT SHIFT. VITAL SIGNS STABLE. TOLERATING PO INTAKE AND VOIDING WELL. AMBULATING WELL W/ ONE ASSIST, FWW, AND GB. PT PLEASANT AND COOPERATIVE THIS SHIFT, WILL CONTINUE TO MONITOR AND REPORT TO ONCOMING RN.
[2022-03-23 06:01] LABS: BASOPHILS ABSOLUTE AUTO 0.03 K/mm3 (0.00-0.23); BASOPHILS PERCENT AUTO 0 % (0-2); EOSINOPHILS PERCENT AUTO 1 % (0-6); Hemoglobin 9.9 g/dL (11.5-16.0); IMMATURE GRAN ABSOLUTE AUTO 0.04 K/mm3 (0.00-0.10); IMMATURE GRAN PERCENT AUTO 0 % (0-1); LYMPHOCYTES ABSOLUTE AUTO 1.64 K/mm3 (0.84-5.20); LYMPHOCYTES PERCENT AUTO 12 % (21-46); MONOCYTES ABSOLUTE AUTO 1.75 K/mm3 (0.16-1.47); MONOCYTES PERCENT AUTO 13 % (4-13); Mean Corpuscular HGB 30.7 pg (26.0-34.0); Mean Corpuscular Volume 93 fL (80-100); Mean Platelet Volume 8.5 fL (9.1-12.4); NEUTROPHILS ABSOLUTE AUTO 9.89 K/mm3 (1.96-9.15); NEUTROPHILS PERCENT AUTO 74 % (41-73); Platelet Count 319 K/mm3 (150-400); RDW Coefficient Variation 13.7 % (11.7-14.2); RDW Standard Deviation 46.9 fL (35.1-46.3); Red Blood Cell Count 3.23 M/mm3 (3.80-5.20); White Blood Cell Count 13.45 K/mm3 (4.00-11.30)
[2022-03-23 11:06] LABS: SARS-Cov-2 (COVID-19) PCR, MMC NEGATIVE (NEGATIVE)
--- NOTE | 2022-03-23 11:40 | NUR ---
IV LFA D/C'D INTACT. SITE CLEAR.
--- NOTE | 2022-03-23 15:11 | NUR ---
DISCHARGE SUMMARY DISCUSSED GENERAL INFORMATION ABOUT SNF REHAB SERVICES WITH THE PATIENT AND HER DAUGHTER WHO HAD QUESTIONS ABOUT HOW LONG SHE WOULD BE THERE TO WHICH THIS RN TOLD HER IT WOULD DEPEND ON HOW SHE DOES WITH HER THERAPY. CALL WAS PLACED TO [facility] IN WHICH REPORT WAS GIVEN TO THE NUSE WHO WOULD BE TAKING CARE OF HER. PT PICKED UP BY [facility] ALEXANDRA CROSS
== END 2022-03-23 14:00 | DRG 522 ==
LOC: ER 14:50 → SURS 18:55
PROVIDERS: Family Medicine; Orthopaedic Surgery; ADMIT Internal Medicine
PROC: 0SRS0JZ Replacement of Left Hip Joint, Femoral Surface with Synthetic Substitute, Open Approach (ICD-10-PCS; principal; 2022-03-21 13:30)
DX: S72.012A Unspecified intracapsular fracture of left femur, initial encounter for closed fracture (principal); N39.0 Urinary tract infection, site not specified; I48.20 Chronic atrial fibrillation, unspecified; Z66 Do not resuscitate; Z20.822 Contact with and (suspected) exposure to COVID-19; F17.210 Nicotine dependence, cigarettes, uncomplicated; Z96.642 Presence of left artificial hip joint; M35.3 Polymyalgia rheumatica; I10 Essential (primary) hypertension; Z95.4 Presence of other heart-valve replacement; Z88.0 Allergy status to penicillin; Z79.01 Long term (current) use of anticoagulants; Z79.52 Long term (current) use of systemic steroids; Z79.899 Other long term (current) drug therapy; W18.39XA Other fall on same level, initial encounter
CPT/HCPCS: 36415; 51702; 71045; 72170; 73502; 73552; 73590; 80053; 81001; 83735; 84100; 85025; 87086; 92610; 93005; 93010; 93246; 94760; 97110; 97162; 97166; 97530; 97535; 99285-25; A9270; C1776; J0171; J0360; J0696; J0735; J1100; J1885; J2270; J2405; J2704; J2795; J3010; J7040; J7120; J7512; U0004

== ENCOUNTER 2022-04-19 12:49 | Emergency (ER) | payer MEDICARE, OTHER ==
[~2022-04-19] VITALS: Ht 167.6 cm; Wt 61.2 kg
[~2022-04-19 12:49] MED LIST changes: +CALCIUM CIT 311 EAC7 PO; +Coq-1030 MG PO; +PRED1 PO; +VITAMIN D31000 UNI1 PO
[2022-04-19 14:00] LABS: BASOPHILS ABSOLUTE AUTO 0.06 K/mm3 (0.00-0.23); BASOPHILS PERCENT AUTO 1 % (0-2); EOSINOPHILS ABSOLUTE AUTO 0.03 K/mm3 (0.00-0.68); EOSINOPHILS PERCENT AUTO 1 % (0-6); Hematocrit 25.7 % (33.0-51.0); Hemoglobin 8.3 g/dL (11.5-16.0); IMMATURE GRAN ABSOLUTE AUTO 0.02 K/mm3 (0.00-0.10); IMMATURE GRAN PERCENT AUTO 0 % (0-1); LYMPHOCYTES ABSOLUTE AUTO 1.13 K/mm3 (0.84-5.20); LYMPHOCYTES PERCENT AUTO 18 % (21-46); MONOCYTES ABSOLUTE AUTO 1.03 K/mm3 (0.16-1.47); MONOCYTES PERCENT AUTO 16 % (4-13); Mean Corpuscular HGB 31.6 pg (26.0-34.0); Mean Corpuscular HGB Conc 32.3 g/dL (31.5-36.5); Mean Corpuscular Volume 98 fL (80-100); Mean Platelet Volume 8.5 fL (9.1-12.4); NEUTROPHILS ABSOLUTE AUTO 4.08 K/mm3 (1.96-9.15); NEUTROPHILS PERCENT AUTO 64 % (41-73); Platelet Count 276 K/mm3 (150-400); RDW Coefficient Variation 15.5 % (11.7-14.2); RDW Standard Deviation 55.3 fL (35.1-46.3); Red Blood Cell Count 2.63 M/mm3 (3.80-5.20); White Blood Cell Count 6.35 K/mm3 (4.00-11.30)
[2022-04-19 14:22] LABS: Magnesium, Blood 2.2 mg/dL (1.6-2.4)
[2022-04-19 14:29] LABS: Albumin, Blood 3.2 g/dL (3.4-5.0); Bilirubin, Total 0.7 mg/dL (0.1-1.0); Bun/Creatinine Ratio 24.6 (12.0-20.0); Calcium, Blood 8.8 mg/dL (8.5-10.1); Creatinine, Blood 1.26 mg/dL (0.40-1.00); Globulin, Blood 3.1 g/dL (2.2-4.0); Potassium, Blood 4.2 mmol/L (3.5-5.5); Total Protein, Blood 6.3 g/dL (6.4-8.2)
[2022-04-19 15:53] LABS: Source, Urine Fem Cath
[2022-04-19 15:57] LABS: Appearance, Urine Clear (Clear); Bilirubin, Urine Neg (Neg); Blood, Urine Neg (Neg); Color, Urine Yellow (P-Yellow); Glucose Qualitative, Urine Neg (Neg); Ketones, Urine Neg (Neg); Leukocyte Esterase, Urine Neg (Neg); Nitrite, Urine Neg (Neg); Protein, Urine 2+ (Neg); Urobilinogen, Urine 1+ (Normal)
[2022-04-19 17:22] LABS: Red Blood Cells, Urine 0-2 /hpf (0-2); Squamous Epithelial Cells Rare /hpf (Few); White Blood Cells, Urine 0-2 /hpf (0-5)
[2022-04-19 17:23] LABS: Bacteria Few /hpf
== END 2022-04-19 17:49 | disposition home or self-care (01) ==
LOC: ER 12:49
PROVIDERS: Emergency Medicine; Physician Assistant
DX: E86.0 Dehydration (principal); I25.10 Atherosclerotic heart disease of native coronary artery without angina pectoris; J44.9 Chronic obstructive pulmonary disease, unspecified; I48.91 Unspecified atrial fibrillation; F17.210 Nicotine dependence, cigarettes, uncomplicated; Z79.899 Other long term (current) drug therapy; Z79.52 Long term (current) use of systemic steroids; Z79.01 Long term (current) use of anticoagulants; Z88.0 Allergy status to penicillin
CPT/HCPCS: 36415; 71045; 80053; 81001; 83735; 85025; 93005; 93010; 99285-25; P9612

== ENCOUNTER 2022-06-14 09:57 | Emergency (ER) | payer MEDICARE, OTHER ==
[~2022-06-14] VITALS: Ht 165.1 cm; Wt 61.2 kg
[2022-06-14] MEDS ORDERED: Ventolin/Prove6.7 GM INH (10:23)
[2022-06-14] MEDS ORDERED: IPRAT-ALBUT 0.5-3 ML INH (10:23)
[2022-06-14 15:15] LABS: BASOPHILS ABSOLUTE AUTO 0.06 K/mm3 (0.00-0.23); BASOPHILS PERCENT AUTO 1 % (0-2); EOSINOPHILS ABSOLUTE AUTO 0.18 K/mm3 (0.00-0.68); EOSINOPHILS PERCENT AUTO 2 % (0-6); Hematocrit 32.5 % (33.0-51.0); Hemoglobin 10.6 g/dL (11.5-16.0); IMMATURE GRAN ABSOLUTE AUTO 0.05 K/mm3 (0.00-0.10); IMMATURE GRAN PERCENT AUTO 0 % (0-1); LYMPHOCYTES PERCENT AUTO 17 % (21-46); MONOCYTES ABSOLUTE AUTO 0.86 K/mm3 (0.16-1.47); MONOCYTES PERCENT AUTO 8 % (4-13); Mean Corpuscular HGB 30.6 pg (26.0-34.0); Mean Corpuscular HGB Conc 32.6 g/dL (31.5-36.5); Mean Corpuscular Volume 94 fL (80-100); Mean Platelet Volume 9.2 fL (9.1-12.4); NEUTROPHILS ABSOLUTE AUTO 8.37 K/mm3 (1.96-9.15); NEUTROPHILS PERCENT AUTO 73 % (41-73); Platelet Count 236 K/mm3 (150-400); RDW Coefficient Variation 14.1 % (11.7-14.2); RDW Standard Deviation 47.8 fL (35.1-46.3); Red Blood Cell Count 3.46 M/mm3 (3.80-5.20); White Blood Cell Count 11.42 K/mm3 (4.00-11.30)
[2022-06-14 15:43] LABS: Albumin, Blood 3.6 g/dL (3.4-5.0); Albumin/Globulin Ratio 1.3 (0.8-1.8); Bilirubin, Total 0.9 mg/dL (0.1-1.0); Bun/Creatinine Ratio 26.1 (12.0-20.0); Calcium, Blood 8.9 mg/dL (8.5-10.1); Creatinine, Blood 1.15 mg/dL (0.40-1.00); Globulin, Blood 2.7 g/dL (2.2-4.0); Potassium, Blood 4.2 mmol/L (3.5-5.5); Total Protein, Blood 6.3 g/dL (6.4-8.2)
[2022-06-14 17:25] LABS: Source, Urine Clean Catch
[2022-06-14 17:36] LABS: Appearance, Urine Clear (Clear); Bilirubin, Urine Neg (Neg); Blood, Urine Neg (Neg); Color, Urine Yellow (P-Yellow); Glucose Qualitative, Urine Neg (Neg); Ketones, Urine Neg (Neg); Leukocyte Esterase, Urine 2+ (Neg); Nitrite, Urine Neg (Neg); Protein, Urine 1+ (Neg); Specific Gravity, Urine 1.015 (1.003-1.022); Urobilinogen, Urine NORM (Normal); pH, Urine 6.5 (5.0-8.0)
[2022-06-14 18:01] LABS: Bacteria Mod /hpf; Red Blood Cells, Urine 0-2 /hpf (0-2); Squamous Epithelial Cells Few /hpf (Few); White Blood Cells, Urine 0-2 /hpf (0-5)
[2022-06-14] MEDS ORDERED: CEPH500 PO (18:28)
== END 2022-06-14 19:01 | disposition home or self-care (01) ==
LOC: ER 09:57
PROVIDERS: Physician Assistant
DX: S81.812A Laceration without foreign body, left lower leg, initial encounter (principal); R42 Dizziness and giddiness; N39.0 Urinary tract infection, site not specified; S70.01XA Contusion of right hip, initial encounter; I25.10 Atherosclerotic heart disease of native coronary artery without angina pectoris; F17.210 Nicotine dependence, cigarettes, uncomplicated; J44.9 Chronic obstructive pulmonary disease, unspecified; Z95.2 Presence of prosthetic heart valve; Z88.0 Allergy status to penicillin; Z79.01 Long term (current) use of anticoagulants; Z79.899 Other long term (current) drug therapy; W05.0XXA Fall from non-moving wheelchair, initial encounter
CPT/HCPCS: 12004; 36415; 70450; 72125; 73502; 73590; 80053; 81001; 84484; 85025; 87086; 93005; 93010; 99285-25; A9270; J7030

== ENCOUNTER 2022-06-16 12:23 | Emergency (ER) | payer MEDICARE, OTHER ==
[~2022-06-16] VITALS: Ht 165.1 cm; Wt 61.2 kg
[~2022-06-16 12:23] MED LIST changes: +CEPH500 PO; +IPRAT-ALBUT 0.5-3 ML INH; +Ventolin/Prove6.7 GM INH
[2022-06-16 14:19] LABS: BASOPHILS ABSOLUTE AUTO 0.06 K/mm3 (0.00-0.23); BASOPHILS PERCENT AUTO 1 % (0-2); EOSINOPHILS ABSOLUTE AUTO 0.25 K/mm3 (0.00-0.68); EOSINOPHILS PERCENT AUTO 3 % (0-6); Hematocrit 27.1 % (33.0-51.0); Hemoglobin 8.7 g/dL (11.5-16.0); IMMATURE GRAN ABSOLUTE AUTO 0.03 K/mm3 (0.00-0.10); IMMATURE GRAN PERCENT AUTO 0 % (0-1); LYMPHOCYTES ABSOLUTE AUTO 1.77 K/mm3 (0.84-5.20); LYMPHOCYTES PERCENT AUTO 18 % (21-46); MONOCYTES ABSOLUTE AUTO 0.92 K/mm3 (0.16-1.47); MONOCYTES PERCENT AUTO 9 % (4-13); Mean Corpuscular HGB 30.5 pg (26.0-34.0); Mean Corpuscular HGB Conc 32.1 g/dL (31.5-36.5); Mean Corpuscular Volume 95 fL (80-100); NEUTROPHILS ABSOLUTE AUTO 7.01 K/mm3 (1.96-9.15); NEUTROPHILS PERCENT AUTO 70 % (41-73); Platelet Count 211 K/mm3 (150-400); RDW Coefficient Variation 14.3 % (11.7-14.2); RDW Standard Deviation 50.1 fL (35.1-46.3); Red Blood Cell Count 2.85 M/mm3 (3.80-5.20); White Blood Cell Count 10.04 K/mm3 (4.00-11.30)
[2022-06-16 14:25] LABS: Magnesium, Blood 2.3 mg/dL (1.6-2.4)
[2022-06-16 14:26] LABS: Albumin, Blood 3.1 g/dL (3.4-5.0); Albumin/Globulin Ratio 1.1 (0.8-1.8); Bilirubin, Total 0.8 mg/dL (0.1-1.0); Bun/Creatinine Ratio 20.6 (12.0-20.0); Calcium, Blood 8.2 mg/dL (8.5-10.1); Creatinine, Blood 1.26 mg/dL (0.40-1.00); Globulin, Blood 2.8 g/dL (2.2-4.0); Potassium, Blood 4.3 mmol/L (3.5-5.5); Total Protein, Blood 5.9 g/dL (6.4-8.2)
[2022-06-17 11:12] LABS: C-REACTIVE PROTEIN, EXT RANGE 4.42 mg/dL (0.000-0.300); Percent Saturation 12.7 % (15.0-50.0); Thyroid Stimulating Hormone 1.75 uIU/mL (0.360-4.800)
== END 2022-06-16 17:48 | disposition home or self-care (01) ==
LOC: ER 12:23
PROVIDERS: Emergency Medicine; Family Medicine
DX: E86.1 Hypovolemia (principal); I48.91 Unspecified atrial fibrillation; J44.9 Chronic obstructive pulmonary disease, unspecified; I25.10 Atherosclerotic heart disease of native coronary artery without angina pectoris; F17.210 Nicotine dependence, cigarettes, uncomplicated; Z88.0 Allergy status to penicillin; Z79.899 Other long term (current) drug therapy; Z79.01 Long term (current) use of anticoagulants
CPT/HCPCS: 80053; 82728; 83540; 83550; 83735; 84443; 84484; 85025; 85651; 86140; 93005; 93010; 93880; 96360; 99285-25; J7030

== ENCOUNTER → 2022-07-13 | Outpatient (CLI) | payer MEDICARE, OTHER ==
[2022-07-14 09:29] LABS: Stool Occult Bld Immuno 1 Negative (NEGATIVE)
== END ==
LOC: LAB 14:00 → LAB SHORT 14:00
PROVIDERS: Registered Nurse Oncology
DX: D50.9 Iron deficiency anemia, unspecified (principal); N18.9 Chronic kidney disease, unspecified
CPT/HCPCS: G0328

== ENCOUNTER 2022-08-17 05:04 | Inpatient (IN) | payer MEDICARE, OTHER ==
[~2022-08-17] VITALS: Ht 165.1 cm; Wt 63.3 kg
[2022-08-17 05:16] LABS: Base Excess Venous -4.7 mmol/L; Bicarbonate Venous 20.3 mmol/L (24.0-30.0); PCO2 Venous 42.4 mmHg (38-42); pH Blood Venous 7.31 (7.34-7.37)
[2022-08-17 05:19] LABS: BASOPHILS ABSOLUTE AUTO 0.04 K/mm3 (0.00-0.23); BASOPHILS PERCENT AUTO 0 % (0-2); EOSINOPHILS ABSOLUTE AUTO 0.01 K/mm3 (0.00-0.68); EOSINOPHILS PERCENT AUTO 0 % (0-6); Hematocrit 29.5 % (33.0-51.0); Hemoglobin 9.4 g/dL (11.5-16.0); IMMATURE GRAN ABSOLUTE AUTO 0.04 K/mm3 (0.00-0.10); IMMATURE GRAN PERCENT AUTO 0 % (0-1); LYMPHOCYTES ABSOLUTE AUTO 1.43 K/mm3 (0.84-5.20); LYMPHOCYTES PERCENT AUTO 13 % (21-46); MONOCYTES ABSOLUTE AUTO 1.16 K/mm3 (0.16-1.47); MONOCYTES PERCENT AUTO 11 % (4-13); Mean Corpuscular HGB 29.4 pg (26.0-34.0); Mean Corpuscular HGB Conc 31.9 g/dL (31.5-36.5); Mean Corpuscular Volume 92 fL (80-100); Mean Platelet Volume 8.6 fL (9.1-12.4); NEUTROPHILS ABSOLUTE AUTO 8.09 K/mm3 (1.96-9.15); NEUTROPHILS PERCENT AUTO 75 % (41-73); Platelet Count 259 K/mm3 (150-400); RDW Standard Deviation 47.6 fL (35.1-46.3); White Blood Cell Count 10.77 K/mm3 (4.00-11.30)
[2022-08-17 05:50] LABS: Albumin, Blood 3.7 g/dL (3.4-5.0); Bilirubin, Total 1.2 mg/dL (0.1-1.0); Bun/Creatinine Ratio 26.9 (12.0-20.0); Creatinine, Blood 1.04 mg/dL (0.40-1.00); Globulin, Blood 3.6 g/dL (2.2-4.0); Magnesium, Blood 2.3 mg/dL (1.6-2.4); Total Protein, Blood 7.3 g/dL (6.4-8.2)
[2022-08-17 06:08] LABS: Influenza B, PCR NEGATIVE (NEGATIVE); Resp Syncytial Virus, PCR NEGATIVE (NEGATIVE); SARS-Cov-2 (COVID-19) PCR, MMC NEGATIVE (NEGATIVE)
[2022-08-17 06:10] LABS: Influenza A, PCR POSITIVE (NEGATIVE)
--- NOTE | 2022-08-17 20:32 | NUR ---
ADMIT NOTE; PT ARRIVES FROM THE ED VIA WHEELCHAIR TO THE FLOOR AT 2031. THE PT ARRIVES ON RA AND APPEARS TO BE IN NO DISTRESS. THE PT ARRIVES WITH A PUREWICK IN PLACE. THE PT IS AX0 X2-3 UPON ARRIVAL, DEMENTIA IS HER BASELINE. THE PT IS A 1 ASSIST PIVOT TRANSFER WITH THE FWW TO THE BED. THE PT HAS NO COMPLAINTS OF PAIN AT THIS TIME, THE PT DOES HAVE SOME EXERTIONAL DYSPNEA. WILL CONTINUE TO MONITOR.
[2022-08-18 04:46] LABS: BASOPHILS ABSOLUTE AUTO 0.01 K/mm3 (0.00-0.23); BASOPHILS PERCENT AUTO 0 % (0-2); EOSINOPHILS PERCENT AUTO 0 % (0-6); Hemoglobin 9.3 g/dL (11.5-16.0); IMMATURE GRAN ABSOLUTE AUTO 0.08 K/mm3 (0.00-0.10); IMMATURE GRAN PERCENT AUTO 1 % (0-1); LYMPHOCYTES ABSOLUTE AUTO 0.82 K/mm3 (0.84-5.20); LYMPHOCYTES PERCENT AUTO 6 % (21-46); MONOCYTES ABSOLUTE AUTO 0.57 K/mm3 (0.16-1.47); MONOCYTES PERCENT AUTO 4 % (4-13); Mean Corpuscular HGB 29.1 pg (26.0-34.0); Mean Corpuscular HGB Conc 32.1 g/dL (31.5-36.5); Mean Corpuscular Volume 91 fL (80-100); Mean Platelet Volume 8.8 fL (9.1-12.4); NEUTROPHILS ABSOLUTE AUTO 13.48 K/mm3 (1.96-9.15); NEUTROPHILS PERCENT AUTO 90 % (41-73); Platelet Count 267 K/mm3 (150-400); RDW Standard Deviation 46.9 fL (35.1-46.3); White Blood Cell Count 14.96 K/mm3 (4.00-11.30)
--- NOTE | 2022-08-18 05:04 | NUR ---
SHIFT SUMMARY; NO ACUTE CHANGES OVERNIGHT. THE PT IS AXO X2-3, DEMENTIA BEING HER BASELINE. THE PT IS NOT ABLE TO PROVIDE A [facility] HISTORY R/T THAT DEMENTIA. PT IS FROM [facility]. THE PT RESTED IN BED FOR THE ENTIRETY OF THE NIGHT WITH A PUREWICK IN PLACE. OUTPUT TO FOLLOW. THE PT REMIANED STABLE ON RA WITH O2 SATS GREATER THAN 90%. CURRENTLY THE PT DENIES ANY SOB OR PAIN. THE PT IS PRESENTLY RESTING IN BED WITH THE BED IN THE LOWEST POSITION AND THE CALL LIGHT AT BEDSIDE.
[2022-08-18 05:14] LABS: Magnesium, Blood 2.2 mg/dL (1.6-2.4)
[2022-08-18 05:15] LABS: Albumin, Blood 3.5 g/dL (3.4-5.0); Anion Gap 8 mmol/L (6-16); Blood Urea Nitrogen 32 mg/dL (8-24); Bun/Creatinine Ratio 33.5 (12.0-20.0); CO2, Blood 24 mmol/L (21-32); Calcium, Blood 8.9 mg/dL (8.5-10.1); Chloride, Blood 108 mmol/L (98-108); Creatinine, Blood 0.96 mg/dL (0.40-1.00); Glomerular Filtration Rate 57 (60-); Glucose, Blood 148 mg/dL (70-99); Phosphorus, Blood 3.2 mg/dL (2.5-4.9); Potassium, Blood 3.6 mmol/L (3.5-5.5); Sodium, Blood 140 mmol/L (136-145)
--- NOTE | 2022-08-18 07:03 | NUR ---
NOTIFIED OF PTS BLOOD PRESSURE OF 180/93 THIS AM AT 0655. AWAITING NEW ORDERS CURRENTLY.
[2022-08-18] MEDS ORDERED: FURO20 PO (08:40)
--- NOTE | 2022-08-18 18:46 | NUR ---
SHIFT SUMMARY- PT ALERT AND ORIENTED TO SELF AND FAMILY, SHE SEEMS PLEASENTLY CONFUSED AT THIS TIME HOWEVER SHE TENDS TO BE WORSE AT NIGHT PER FAMILY, NUMBER IS ON THE BOARD IF THEY ARE NEEDED TO COME IN AND SIT WITH HER. PT HAS BECOME INCREASINGLY CONFUSED THIS EVENING. JUST NOT UNDERSTANDING INSTRUCTIONS, FIDGETTING AND MAKING CALLS AND TEXTS TO FAMILY MEMBERS LEADING THEM TO COME IN TO CHECK ON HER. PT HAS SET OFF THE BED ALARM SEVERAL TIMES. PASSED ON TO NIGHT RN IN REPORT.
[2022-08-19 02:56] LABS: BASOPHILS ABSOLUTE AUTO 0.01 K/mm3 (0.00-0.23); BASOPHILS PERCENT AUTO 0 % (0-2); EOSINOPHILS PERCENT AUTO 0 % (0-6); Hematocrit 31.6 % (33.0-51.0); Hemoglobin 10.3 g/dL (11.5-16.0); IMMATURE GRAN ABSOLUTE AUTO 0.05 K/mm3 (0.00-0.10); IMMATURE GRAN PERCENT AUTO 0 % (0-1); LYMPHOCYTES ABSOLUTE AUTO 1.11 K/mm3 (0.84-5.20); LYMPHOCYTES PERCENT AUTO 7 % (21-46); MONOCYTES ABSOLUTE AUTO 0.37 K/mm3 (0.16-1.47); MONOCYTES PERCENT AUTO 2 % (4-13); Mean Corpuscular HGB Conc 32.6 g/dL (31.5-36.5); Mean Corpuscular Volume 89 fL (80-100); Mean Platelet Volume 9.2 fL (9.1-12.4); NEUTROPHILS ABSOLUTE AUTO 15.43 K/mm3 (1.96-9.15); NEUTROPHILS PERCENT AUTO 91 % (41-73); Platelet Count 334 K/mm3 (150-400); RDW Coefficient Variation 13.8 % (11.7-14.2); RDW Standard Deviation 45.5 fL (35.1-46.3); Red Blood Cell Count 3.55 M/mm3 (3.80-5.20); White Blood Cell Count 16.97 K/mm3 (4.00-11.30)
[2022-08-19 03:00] LABS: Magnesium, Blood 2.2 mg/dL (1.6-2.4)
[2022-08-19 03:02] LABS: Albumin, Blood 3.8 g/dL (3.4-5.0); Anion Gap 10 mmol/L (6-16); Blood Urea Nitrogen 44 mg/dL (8-24); Bun/Creatinine Ratio 43.1 (12.0-20.0); CO2, Blood 27 mmol/L (21-32); Calcium, Blood 8.7 mg/dL (8.5-10.1); Chloride, Blood 103 mmol/L (98-108); Creatinine, Blood 1.02 mg/dL (0.40-1.00); Glomerular Filtration Rate 53 (60-); Glucose, Blood 161 mg/dL (70-99); Phosphorus, Blood 2.8 mg/dL (2.5-4.9); Potassium, Blood 3.1 mmol/L (3.5-5.5); Sodium, Blood 140 mmol/L (136-145)
--- NOTE | 2022-08-19 05:50 | NUR ---
SHIFT SUMMARY; PT WITH SUNDOWNING AT THE BEGINNING OF THE SHIFT. PT IS IMPULSIVE AND TRIES TO GET OUT OF BED INDEPENDTLY, BED ALARM ON. PT IS PLEASANTLY DEMENTED AND EASILY REDIRECTABLE. PT DID REST IN BED THROUGHOUT THE NIGHT, THE PT ONLY TRIED TO GET OUT OF BED TWICE BETWEEM THE HOURS OF 2200 AND NOW. CURRENTLY THE PT IS SLEEPING IN BED WITH THE BED IN THE LOWEST POSITION AND THE CALL LIGHT IN THE PTS LAP. NO OTHER ACUTE CHANGES IN THE PT OVERNIGHT, THE PTS DENIES ANY SOB OR PAIN AT THIS TIME.
--- NOTE | 2022-08-19 11:35 | NUR ---
DR. JOEL NOTIFIED OF PATIENT HR OF 37 BPM PER LOOPING MACHINE OPERATOR. THE PATIENT WAS SLEEPING DURING THIS TIME. DR. JOEL ASKED THAT THIS RN WAKE THE PATIENT AND SEE HOW HER HR CHANGED AND IF SHES SYMPTOMATIC
[2022-08-19] MEDS ORDERED: ACET325 PO (11:50)
[2022-08-19] MEDS ORDERED: HYDR10 PO (11:52)
[2022-08-19] MEDS ORDERED: OSELTAMIVIR PO (11:54)
[2022-08-19] MEDS ORDERED: Lisinopril2.5 MG PO (11:56)
[2022-08-19] MEDS ORDERED: IPRAT-ALBUT 0.5-3 ML INH (11:57)
[2022-08-19] MEDS ORDERED: PRED20 PO (12:01)
--- NOTE | 2022-08-19 15:25 | NUR ---
Echocardiogram performed.
--- NOTE | 2022-08-19 18:35 | NUR ---
PATIENT IS ALERT AND ORIENTED WITH TIMES OF CONFUSION. SHE THOUGHT SHE WAS IN THE WRONG ROOM AT ONE POINT THIS AFTERNOON. FAMILY HAS BEEN AT THE BEDSIDE THROUGHOUT THE SHIFT. THE PATIENT'S IS IN 364. THE PATIENT IS IN HIS ROOM NOW EATING DINNER TOGETHER. TELE SHOWED HR OF 38 BPM THIS MORNING AND AGAIN THIS AFTERNOON WHILE THE PATIENT SLEPT, DR. JOEL IS AWARE. PATIENT C/O HEADACHE AND MEDICATED PER EMAR AND ENCOURAGED TO DRINK WATER. PATIENT C/O LIGHTHEADEDNESS/DIZZINESS WHEN SITTING UP FROM LAYING DOWN, DR. JOEL IS AWARE. PATIENT IS 1PA WITH GAITBELT AND FWW. USES BSC.
--- NOTE | 2022-08-19 23:26 | NUR ---
NOTIFIED BY PCU HOUSE FURNISHINGS SUPERVISOR PT HAD BRIEF EPISODE OF SINUS BRADYCARDIA AT 34 @2136 FOR 2 SECONDS.
--- NOTE | 2022-08-20 03:33 | NUR ---
RN NOTIFIED BY PCU DOLL MAKER PT IN AFIB AND SINUS ENA AT 36 BPM FOR 2.39 SECS. WILL CONTINUE TO MONITOR.
--- NOTE | 2022-08-20 03:40 | NUR ---
SHIFT SUMMARY NOC PT A/O X 2-3. MOMENTS OF CONFUSION BUT EASILY REDIRECTABLE. PT HAD C/O OF NURSE NOT COMING QUICK ENOUGH BUT PT HAD NOT HIT CALL LIGHT. PT HAS BEEN 1PA WITH FWW AND GB TO USE BSC. PT BP WAS SLIGHTLY ELEVATED BUT NOT ENOUGH FOR RX. PT IS STILL ON TELE AND WAS IN AFIB AND TWO EPISODES OF BRADYCARDIA OF 34 AND 36 BPM THAT LASTED 2 SECS AND 2.39 SECS. PT WAS PLEASANT AND COOPERATIVE TO CARE. PT IS CURRENTLY RESTING WITH BED RAILS UP, BED IN LOWEST POSITION, AND CALL LIGHT WITHIN REACH.
[2022-08-20] MEDS ORDERED: OXYC5 PO (05:24)
[2022-08-20] MEDS ORDERED: AMLODIPINE BES2.5 MG PO (05:24)
[2022-08-20] MEDS ORDERED: DICLOFENAC SOD100 G1 TOP (05:25)
[2022-08-20] MEDS ORDERED: Ventolin/Prove6.7 GM INH (05:26)
[2022-08-20 06:46] LABS: Albumin, Blood 3.5 g/dL (3.4-5.0); Anion Gap 9 mmol/L (6-16); Blood Urea Nitrogen 40 mg/dL (8-24); Bun/Creatinine Ratio 41.7 (12.0-20.0); CO2, Blood 27 mmol/L (21-32); Chloride, Blood 103 mmol/L (98-108); Creatinine, Blood 0.96 mg/dL (0.40-1.00); Glomerular Filtration Rate 57 (60-); Glucose, Blood 119 mg/dL (70-99); Phosphorus, Blood 2.3 mg/dL (2.5-4.9); Potassium, Blood 3.1 mmol/L (3.5-5.5); Sodium, Blood 139 mmol/L (136-145)
--- NOTE | 2022-08-20 07:23 | NUR ---
HAMMER SETTER CALLED TO REPORT HR OF 33 BPM MOMENTARILY BEFORE GOING BACK UP TO 45 BPM. PATIENT IS ALSEEP AT THIS TIME. WILL NOTIFY DR. JOEL
[2022-08-20] MEDS ORDERED: NIFE30ER PO (13:01)
[2022-08-20] MEDS ORDERED: PRED1 PO (13:08)
--- NOTE | 2022-08-20 15:10 | NUR ---
PATIENT DISCHARGED TO [facility] AT 1450. REPORT CALLED TO [facility] AT [facility]. MEDS FAXED TO [facility].
== END 2022-08-20 14:55 | disposition home health service (06) | DRG 193 ==
LOC: ER 05:04 → ERHOLD 07:31 → MEDS 07:31
PROVIDERS: Student in an Organized Health Care Education/Training Program; ADMIT Family Medicine
PROC: 5A09357 Assistance with Respiratory Ventilation, Less than 24 Consecutive Hours, Continuous Positive Airway Pressure (ICD-10-PCS; principal; 2022-08-17)
DX: J10.00 Influenza due to other identified influenza virus with unspecified type of pneumonia (principal); I50.31 Acute diastolic (congestive) heart failure; J96.01 Acute respiratory failure with hypoxia; I48.20 Chronic atrial fibrillation, unspecified; J44.0 Chronic obstructive pulmonary disease with (acute) lower respiratory infection; J44.1 Chronic obstructive pulmonary disease with (acute) exacerbation; I11.0 Hypertensive heart disease with heart failure; Z66 Do not resuscitate; I77.9 Disorder of arteries and arterioles, unspecified; R00.1 Bradycardia, unspecified; I95.9 Hypotension, unspecified; I25.10 Atherosclerotic heart disease of native coronary artery without angina pectoris; I77.1 Stricture of artery; F17.210 Nicotine dependence, cigarettes, uncomplicated; Z20.822 Contact with and (suspected) exposure to COVID-19; Z88.0 Allergy status to penicillin; Z79.899 Other long term (current) drug therapy; Z95.2 Presence of prosthetic heart valve; Z79.51 Long term (current) use of inhaled steroids; Z79.01 Long term (current) use of anticoagulants; Z79.02 Long term (current) use of antithrombotics/antiplatelets; Z79.52 Long term (current) use of systemic steroids; Z79.2 Long term (current) use of antibiotics
CPT/HCPCS: 0241U; 36415; 70450; 71045; 80053; 80069; 82803; 83735; 83880; 84145; 85025; 93005; 93010; 93306; 94640; 94644; 94660; 94664; 96374-59; 96375-59; 96376-59; 97116; 97162; 97165; 97530; 97535; 99285-25; A9270; J0360; J0456; J1940; J2920; J2930; J7030; J7050; J7512

== ENCOUNTER → 2022-12-09 | Outpatient (CLI) | payer MEDICARE, OTHER ==
[~2022-12-09] MED LIST changes: +ACET325 PO; +AMLODIPINE BES2.5 MG PO; +DICLOFENAC SOD100 G1 TOP; +FURO20 PO; +HYDR10 PO; +Lisinopril2.5 MG PO; +NIFE30ER PO; +OSELTAMIVIR PO; +OXYC5 PO; +PRED20 PO
== END | disposition home or self-care (01) ==
LOC: LAB SHORT 17:06
DX: F05 Delirium due to known physiological condition (principal); R30.0 Dysuria
CPT/HCPCS: 87086

== ENCOUNTER → 2023-04-07 | Outpatient (CLI) | payer MEDICARE, OTHER ==
[2023-04-07 15:19] LABS: BASOPHILS ABSOLUTE AUTO 0.07 K/mm3 (0.00-0.23); BASOPHILS PERCENT AUTO 1 % (0-2); EOSINOPHILS PERCENT AUTO 3 % (0-6); Hematocrit 25.9 % (33.0-51.0); IMMATURE GRAN ABSOLUTE AUTO 0.04 K/mm3 (0.00-0.10); IMMATURE GRAN PERCENT AUTO 0 % (0-1); LYMPHOCYTES ABSOLUTE AUTO 1.45 K/mm3 (0.84-5.20); LYMPHOCYTES PERCENT AUTO 15 % (21-46); MONOCYTES ABSOLUTE AUTO 0.84 K/mm3 (0.16-1.47); MONOCYTES PERCENT AUTO 9 % (4-13); Mean Corpuscular HGB 27.1 pg (26.0-34.0); Mean Corpuscular HGB Conc 30.9 g/dL (31.5-36.5); Mean Corpuscular Volume 88 fL (80-100); Mean Platelet Volume 8.3 fL (9.1-12.4); NEUTROPHILS ABSOLUTE AUTO 7.01 K/mm3 (1.96-9.15); NEUTROPHILS PERCENT AUTO 72 % (41-73); Platelet Count 436 K/mm3 (150-400); RDW Coefficient Variation 15.9 % (11.7-14.2); RDW Standard Deviation 51.2 fL (35.1-46.3); Red Blood Cell Count 2.95 M/mm3 (3.80-5.20); White Blood Cell Count 9.71 K/mm3 (4.00-11.30)
[2023-04-07 15:30] LABS: Albumin/Globulin Ratio 0.8 (0.8-1.8); Bilirubin, Total 0.8 mg/dL (0.1-1.0); Calcium, Blood 8.8 mg/dL (8.5-10.1); Creatinine, Blood 1.25 mg/dL (0.40-1.00); Globulin, Blood 3.7 g/dL (2.2-4.0); Potassium, Blood 4.2 mmol/L (3.5-5.5); Total Protein, Blood 6.7 g/dL (6.4-8.2)
== END | disposition home or self-care (01) ==
LOC: LAB SHORT 14:15
PROVIDERS: Family Medicine
DX: D50.8 Other iron deficiency anemias (principal); R53.83 Other fatigue
CPT/HCPCS: 36415; 80053; 82728; 83540; 83550; 85025

== ENCOUNTER 2023-04-28 13:44 | Emergency (ER) | payer MEDICARE, OTHER ==
[~2023-04-28] VITALS: Ht 165.1 cm; Wt 81.7 kg
[2023-04-28 14:28] LABS: BASOPHILS ABSOLUTE AUTO 0.03 K/mm3 (0.00-0.23); BASOPHILS PERCENT AUTO 0 % (0-2); EOSINOPHILS ABSOLUTE AUTO 0.09 K/mm3 (0.00-0.68); EOSINOPHILS PERCENT AUTO 1 % (0-6); Hematocrit 34.9 % (33.0-51.0); Hemoglobin 10.9 g/dL (11.5-16.0); IMMATURE GRAN ABSOLUTE AUTO 0.16 K/mm3 (0.00-0.10); IMMATURE GRAN PERCENT AUTO 1 % (0-1); LYMPHOCYTES ABSOLUTE AUTO 2.72 K/mm3 (0.84-5.20); LYMPHOCYTES PERCENT AUTO 15 % (21-46); MONOCYTES ABSOLUTE AUTO 0.93 K/mm3 (0.16-1.47); MONOCYTES PERCENT AUTO 5 % (4-13); Mean Corpuscular HGB Conc 31.2 g/dL (31.5-36.5); Mean Corpuscular Volume 87 fL (80-100); Mean Platelet Volume 8.6 fL (9.1-12.4); NEUTROPHILS ABSOLUTE AUTO 14.34 K/mm3 (1.96-9.15); NEUTROPHILS PERCENT AUTO 78 % (41-73); Platelet Count 373 K/mm3 (150-400); RDW Coefficient Variation 16.1 % (11.7-14.2); RDW Standard Deviation 50.3 fL (35.1-46.3); Red Blood Cell Count 4.03 M/mm3 (3.80-5.20); White Blood Cell Count 18.27 K/mm3 (4.00-11.30)
[2023-04-28 14:56] LABS: Albumin, Blood 3.9 g/dL (3.4-5.0); Albumin/Globulin Ratio 1.1 (0.8-1.8); Bilirubin, Total 1.1 mg/dL (0.1-1.0); Bun/Creatinine Ratio 36.4 (12.0-20.0); Calcium, Blood 9.1 mg/dL (8.5-10.1); Creatinine, Blood 1.21 mg/dL (0.40-1.00); Globulin, Blood 3.4 g/dL (2.2-4.0); Potassium, Blood 5.2 mmol/L (3.5-5.5); Total Protein, Blood 7.3 g/dL (6.4-8.2)
[2023-04-28 15:52] LABS: Source, Urine Straight Cath
[2023-04-28 16:14] LABS: Appearance, Urine Clear (Clear); Bilirubin, Urine Neg (Neg); Blood, Urine Neg (Neg); Color, Urine Yellow (P-Yellow); Glucose Qualitative, Urine Neg (Neg); Ketones, Urine Neg (Neg); Leukocyte Esterase, Urine Neg (Neg); Nitrite, Urine Neg (Neg); Protein, Urine Neg (Neg); Specific Gravity, Urine 1.015 (1.003-1.022); Urobilinogen, Urine NORM (Normal)
[2023-04-28 18:00] VITALS: BP 136/80
== END 2023-04-28 18:12 | disposition home or self-care (01) ==
LOC: ER 13:44
PROVIDERS: Emergency Medicine; Physician Assistant
DX: R07.9 Chest pain, unspecified (principal); Z88.0 Allergy status to penicillin; Z79.899 Other long term (current) drug therapy; Z79.52 Long term (current) use of systemic steroids
CPT/HCPCS: 51701; 71046; 80053; 81003; 83690; 84484; 85025; 93005; 93010; 99284-25

== ENCOUNTER 2023-05-05 00:38 | Day surgery (SDC) | payer MEDICARE, OTHER ==
[2023-05-05 15:07] VITALS: BP 135/57
== END 2023-05-05 16:12 | disposition home or self-care (01) ==
LOC: ATC 00:38
DX: D50.9 Iron deficiency anemia, unspecified (principal); I25.10 Atherosclerotic heart disease of native coronary artery without angina pectoris; I48.91 Unspecified atrial fibrillation; K21.9 Gastro-esophageal reflux disease without esophagitis; N18.30 Chronic kidney disease, stage 3 unspecified; I50.9 Heart failure, unspecified; Z88.0 Allergy status to penicillin; I13.0 Hypertensive heart and chronic kidney disease with heart failure and stage 1 through stage 4 chronic kidney disease, or unspecified chronic kidney disease; D63.1 Anemia in chronic kidney disease; M17.12 Unilateral primary osteoarthritis, left knee; M81.0 Age-related osteoporosis without current pathological fracture
CPT/HCPCS: 96365; J2916

== ENCOUNTER 2023-05-11 01:10 | Day surgery (SDC) | payer MEDICARE, OTHER ==
[2023-05-11 10:33] VITALS: BP 100/46
== END 2023-05-11 11:40 | disposition home or self-care (01) ==
LOC: ATC 01:10
DX: D50.9 Iron deficiency anemia, unspecified (principal); I12.9 Hypertensive chronic kidney disease with stage 1 through stage 4 chronic kidney disease, or unspecified chronic kidney disease; N18.2 Chronic kidney disease, stage 2 (mild); M35.3 Polymyalgia rheumatica; M17.12 Unilateral primary osteoarthritis, left knee; M81.0 Age-related osteoporosis without current pathological fracture; Z88.0 Allergy status to penicillin
CPT/HCPCS: 96365; J2916

== ENCOUNTER 2023-05-19 00:16 | Day surgery (SDC) | payer MEDICARE, OTHER ==
[2023-05-19 15:22] VITALS: BP 166/52
== END 2023-05-19 16:20 | disposition home or self-care (01) ==
LOC: ATC 00:16
DX: D50.9 Iron deficiency anemia, unspecified (principal); M81.0 Age-related osteoporosis without current pathological fracture; I48.91 Unspecified atrial fibrillation; K21.9 Gastro-esophageal reflux disease without esophagitis; I10 Essential (primary) hypertension; D63.1 Anemia in chronic kidney disease; N18.30 Chronic kidney disease, stage 3 unspecified; M17.12 Unilateral primary osteoarthritis, left knee
CPT/HCPCS: 96365; J2916

== ENCOUNTER 2023-07-20 11:40 | Emergency (ER) | payer MEDICARE, OTHER ==
[~2023-07-20] VITALS: Ht 167.6 cm; Wt 81.7 kg
[~2023-07-20 11:40] MED LIST changes: +ALEVE ARTHRITI100 GM TOP; +COQ-10100 MG PO; -Coq-1030 MG PO; -DICLOFENAC SOD100 G1 TOP
[2023-07-20 12:36] LABS: BASOPHILS ABSOLUTE AUTO 0.06 K/mm3 (0.00-0.23); BASOPHILS PERCENT AUTO 1 % (0-2); EOSINOPHILS ABSOLUTE AUTO 0.14 K/mm3 (0.00-0.68); EOSINOPHILS PERCENT AUTO 1 % (0-6); Hematocrit 33.4 % (33.0-51.0); Hemoglobin 10.6 g/dL (11.5-16.0); IMMATURE GRAN ABSOLUTE AUTO 0.06 K/mm3 (0.00-0.10); IMMATURE GRAN PERCENT AUTO 1 % (0-1); LYMPHOCYTES ABSOLUTE AUTO 1.59 K/mm3 (0.84-5.20); LYMPHOCYTES PERCENT AUTO 14 % (21-46); MONOCYTES ABSOLUTE AUTO 0.89 K/mm3 (0.16-1.47); MONOCYTES PERCENT AUTO 8 % (4-13); Mean Corpuscular HGB 29.3 pg (26.0-34.0); Mean Corpuscular HGB Conc 31.7 g/dL (31.5-36.5); Mean Corpuscular Volume 92 fL (80-100); Mean Platelet Volume 8.6 fL (9.1-12.4); NEUTROPHILS ABSOLUTE AUTO 8.35 K/mm3 (1.96-9.15); NEUTROPHILS PERCENT AUTO 75 % (41-73); Platelet Count 283 K/mm3 (150-400); RDW Coefficient Variation 14.8 % (11.7-14.2); RDW Standard Deviation 49.8 fL (35.1-46.3); Red Blood Cell Count 3.62 M/mm3 (3.80-5.20); White Blood Cell Count 11.09 K/mm3 (4.00-11.30)
[2023-07-20 12:44] LABS: Source, Urine Straight Cath
[2023-07-20 12:56] LABS: Appearance, Urine Hazy (Clear); Bilirubin, Urine Neg (Neg); Blood, Urine 1+ (Neg); Color, Urine Yellow (P-Yellow); Glucose Qualitative, Urine Neg (Neg); Ketones, Urine Neg (Neg); Leukocyte Esterase, Urine 2+ (Neg); Nitrite, Urine Pos (Neg); Protein, Urine 1+ (Neg); Urobilinogen, Urine NORM (Normal)
[2023-07-20 13:08] LABS: Squamous Epithelial Cells Few /hpf (Few); White Blood Cells, Urine 25-50 /hpf (0-5)
[2023-07-20 13:09] LABS: Bacteria Few /hpf
[2023-07-20 13:10] LABS: Granular Casts 0-2 /lpf (0)
[2023-07-20 13:47] LABS: Albumin, Blood 3.9 g/dL (3.4-5.0); Albumin/Globulin Ratio 1.3 (0.8-1.8); Bilirubin, Total 1.1 mg/dL (0.1-1.0); Bun/Creatinine Ratio 23.2 (12.0-20.0); Calcium, Blood 10.4 mg/dL (8.5-10.1); Creatinine, Blood 1.51 mg/dL (0.40-1.00); Globulin, Blood 3.1 g/dL (2.2-4.0); Potassium, Blood 4.4 mmol/L (3.5-5.5)
[2023-07-20] MEDS ORDERED: CEFP200 PO (14:17)
[2023-07-20 15:10] VITALS: BP 164/95
[2023-07-21] MEDS ORDERED: FERROUS GLUCON240 MG PO (19:25)
[2023-07-21] MEDS ORDERED: PROBIOTIC1 EA13 PO (19:26)
[2023-07-21] MEDS ORDERED: POTCHL20ER PO (19:27)
[2023-07-21] MEDS ORDERED: VITAMIN D310 MC4 PO (19:28)
== END 2023-07-20 15:15 | disposition home or self-care (01) ==
LOC: ER 11:40
PROVIDERS: Student in an Organized Health Care Education/Training Program
DX: S09.90XA Unspecified injury of head, initial encounter (principal); R41.0 Disorientation, unspecified; N39.0 Urinary tract infection, site not specified; W18.30XA Fall on same level, unspecified, initial encounter; Z88.0 Allergy status to penicillin; Z79.899 Other long term (current) drug therapy; Z79.52 Long term (current) use of systemic steroids; I25.10 Atherosclerotic heart disease of native coronary artery without angina pectoris; J44.9 Chronic obstructive pulmonary disease, unspecified; I48.91 Unspecified atrial fibrillation; Z87.891 Personal history of nicotine dependence
CPT/HCPCS: 51701; 70450; 80053; 81001; 85025; 87077; 87086; 87186; 93005; 93010; 96360-59; 99284-25; A9270; J7030

== ENCOUNTER 2023-07-21 13:56 | Inpatient (IN) | payer MEDICARE, OTHER ==
[~2023-07-21] VITALS: Ht 167.6 cm; Wt 62.6 kg
[~2023-07-21 13:56] MED LIST changes: +CEFP200 PO
[2023-07-21 14:37] LABS: BASOPHILS ABSOLUTE AUTO 0.06 K/mm3 (0.00-0.23); BASOPHILS PERCENT AUTO 1 % (0-2); EOSINOPHILS ABSOLUTE AUTO 0.14 K/mm3 (0.00-0.68); EOSINOPHILS PERCENT AUTO 1 % (0-6); Hematocrit 34.5 % (33.0-51.0); Hemoglobin 11.4 g/dL (11.5-16.0); IMMATURE GRAN ABSOLUTE AUTO 0.05 K/mm3 (0.00-0.10); IMMATURE GRAN PERCENT AUTO 0 % (0-1); LYMPHOCYTES ABSOLUTE AUTO 1.49 K/mm3 (0.84-5.20); LYMPHOCYTES PERCENT AUTO 12 % (21-46); MONOCYTES ABSOLUTE AUTO 0.83 K/mm3 (0.16-1.47); MONOCYTES PERCENT AUTO 7 % (4-13); Mean Corpuscular HGB 30.2 pg (26.0-34.0); Mean Corpuscular Volume 91 fL (80-100); Mean Platelet Volume 8.9 fL (9.1-12.4); NEUTROPHILS ABSOLUTE AUTO 9.58 K/mm3 (1.96-9.15); NEUTROPHILS PERCENT AUTO 79 % (41-73); Platelet Count 291 K/mm3 (150-400); RDW Coefficient Variation 14.8 % (11.7-14.2); RDW Standard Deviation 49.9 fL (35.1-46.3); Red Blood Cell Count 3.78 M/mm3 (3.80-5.20); White Blood Cell Count 12.15 K/mm3 (4.00-11.30)
[2023-07-21 14:53] LABS: Magnesium, Blood 2.2 mg/dL (1.6-2.4)
[2023-07-21 14:56] LABS: Albumin, Blood 3.9 g/dL (3.4-5.0); Albumin/Globulin Ratio 1.1 (0.8-1.8); Bun/Creatinine Ratio 24.5 (12.0-20.0); Calcium, Blood 10.2 mg/dL (8.5-10.1); Creatinine, Blood 1.47 mg/dL (0.40-1.00); Globulin, Blood 3.4 g/dL (2.2-4.0); Phosphorus, Blood 3.4 mg/dL (2.5-4.9); Potassium, Blood 4.4 mmol/L (3.5-5.5); Total Protein, Blood 7.3 g/dL (6.4-8.2)
[2023-07-21 15:31] LABS: Source, Urine Clean Catch
[2023-07-21 15:43] LABS: Appearance, Urine Clear (Clear); Bilirubin, Urine Neg (Neg); Blood, Urine 1+ (Neg); Glucose Qualitative, Urine Neg (Neg); Ketones, Urine Neg (Neg); Leukocyte Esterase, Urine Neg (Neg); Nitrite, Urine Neg (Neg); Protein, Urine Neg (Neg); Urobilinogen, Urine NORM (Normal)
[2023-07-21 15:50] LABS: Color, Urine Pale Yellow (P-Yellow)
[2023-07-21 15:52] LABS: Amorphous Light (0-Heavy); Bacteria Few /hpf; Squamous Epithelial Cells Few /hpf (Few); White Blood Cells, Urine 0-2 /hpf (0-5)
[2023-07-21] MEDS ORDERED: FERROUS GLUCON240 MG PO (19:25)
[2023-07-21] MEDS ORDERED: PROBIOTIC1 EA13 PO (19:26)
[2023-07-21] MEDS ORDERED: POTCHL20ER PO (19:27)
[2023-07-21] MEDS ORDERED: VITAMIN D310 MC4 PO (19:28)
[2023-07-21 21:32] VITALS: BP 169/97
[2023-07-22] MEDS ORDERED: RISEDRONATE SOD35 M2 PO (00:10)
[2023-07-22] MEDS ORDERED: PEPCID40 MG PO (00:12)
[2023-07-22 02:31] VITALS: BP 156/98
--- NOTE | 2023-07-22 03:52 | NUR ---
NOTIFIED BY LEGAL BILLING COORDINATOR PT HAD PAUSE OF 2.8 SECS, CHECKED ON PT AND PT WAS SLEEPING, WITH HR IN 50'S.
--- NOTE | 2023-07-22 04:47 | NUR ---
SHIFT SUMMARY NOC ADMIT FROM ED WITH DX OF TME/UTI. PT A/O X SELF. PLEASANTLY CONFUSED AND COOPERATIVE WITH CARE. TAKES TIME FOR PT TO REDIRECT. PT HAS TROUBLE FOLLOWING SIMPLE DIRECTIONS. UPON ADMIT PT BEGAN ATTEMPTING OOB UNSAFELY AND PULLING @ IV, TELE, PUREWICK, LINES. POSY VEST RESTRAINT INITIATED AND APPROVED ORDER. PT GIVEN IM HALDOL AND ZYPREXA FOR AGITATION, WELL SUPPOSITORY TYLENOL, IV FENTANYL FOR GENERALIZED PAIN. PT HAS BEDSIDE SWALLOW EVAL ORDERED, BUT PT CANNOT FOLLOW DIRECTIONS AND REMAINS HIGH ASPIRATION RISK, PT IS CURRENTLY NPO. PT HAS CONTINUOS INFUSION OF NS @ 75 ML/HR. PT HAS PUREWICK IN PLACE. ON TELE RUNNING AFIB AND SINUS ENA IN 50'S, BUT HAS DROPPED INTO HIGH 30'S FOR A FEW SECONDS MULITPLE TIME, PT ASYMPTOMATIC EACH TIME UPON ASSESSMENT. DURING ADMIT ASSESSMENT PT WAS ANSWERING QUESTIONS ABOUT MEDICAL HISTORY, BUT ACCURACY REMAINS IN DOUBT. PT DAUGHTER WILL BE IN THIS MORNING TO HELP CLARIFY PT RX RECONCILIATION, HISTORY, AND ADVANCED DIRECTIVE, ETC. PT IS CURRENTLY RESTING WITH BED ALARM ON, BED IN LOWEST POSITION, AND CALL LIGHT WITHIN REACH.
[2023-07-22 05:43] LABS: BASOPHILS ABSOLUTE AUTO 0.05 K/mm3 (0.00-0.23); BASOPHILS PERCENT AUTO 1 % (0-2); EOSINOPHILS ABSOLUTE AUTO 0.27 K/mm3 (0.00-0.68); EOSINOPHILS PERCENT AUTO 3 % (0-6); Hematocrit 32.6 % (33.0-51.0); Hemoglobin 10.4 g/dL (11.5-16.0); IMMATURE GRAN ABSOLUTE AUTO 0.03 K/mm3 (0.00-0.10); IMMATURE GRAN PERCENT AUTO 0 % (0-1); LYMPHOCYTES ABSOLUTE AUTO 2.38 K/mm3 (0.84-5.20); LYMPHOCYTES PERCENT AUTO 22 % (21-46); MONOCYTES PERCENT AUTO 8 % (4-13); Mean Corpuscular HGB Conc 31.9 g/dL (31.5-36.5); Mean Corpuscular Volume 91 fL (80-100); Mean Platelet Volume 8.5 fL (9.1-12.4); NEUTROPHILS ABSOLUTE AUTO 7.05 K/mm3 (1.96-9.15); NEUTROPHILS PERCENT AUTO 66 % (41-73); Platelet Count 252 K/mm3 (150-400); RDW Coefficient Variation 14.6 % (11.7-14.2); Red Blood Cell Count 3.59 M/mm3 (3.80-5.20); White Blood Cell Count 10.68 K/mm3 (4.00-11.30)
[2023-07-22 06:28] LABS: Magnesium, Blood 2.3 mg/dL (1.6-2.4)
[2023-07-22 06:29] LABS: Albumin, Blood 3.4 g/dL (3.4-5.0); Albumin/Globulin Ratio 1.1 (0.8-1.8); Bun/Creatinine Ratio 21.3 (12.0-20.0); Creatinine, Blood 1.22 mg/dL (0.40-1.00); Potassium, Blood 3.9 mmol/L (3.5-5.5); Total Protein, Blood 6.4 g/dL (6.4-8.2)
--- NOTE | 2023-07-22 06:41 | NUR ---
DR JOEL NOTIFIED THAT PT HAS HR HAS BEEN AVERAGING IN MID 40'S AND DIPPING INTO HIGH 30'S FOR LAST COUPLE OF HOURS. PT CODE STATUS CHANGED TO DNR AND DR JOEL WILL COME IN TO ASSESS PT.
--- NOTE | 2023-07-22 09:21 | NUR ---
Comfort Care Visit Comfort Care order received. Spoke with Dr uDnlap and discussed case. Pt resting in bed with her eyes closed and is in LUDIVINA vest. No family at bedside. Pt appears comfortable with no S/S of distress at this time. Palliative Care will F/U at a later time when family is at bedside
--- NOTE | 2023-07-22 18:04 | NUR ---
SHIFT SUMMARY: STATUS CHANGED TO COMFORT CARE. WAS QUITE SOMNOLENT AT START OF SHIFT BUT AWAKENED THIS AFTERNOON; A&O X 1, RECOGNIZES FAMILY, HAS TROUBLE FOLLOWING DIRECTIONS. DENIED PAIN. TELEMETRY DISCONTINUED. DIET ADVANCED TOLERATED. PUREWICK IN PLACE TO MANAGE URINE. DAUGHTER AND SPOUSE AT BEDSIDE MOST OF THE DAY.
--- NOTE | 2023-07-23 05:03 | NUR ---
SHIFT SUMMARY NOC A/O TO SELF. ON COMFORT CARE MEASURES. STILL RECEIVING IV ABX FOR UTI AND PPI FOR GERD. DURING SHIFT PT PULLED PUREWICK OUT TWICE AND IT WAS DISCONTINUED, DUE TO INCREASED AGITATION. PT WAS MEDICATED WITH 2MG PO ATIVAN WITH DESIRED EFFECT. PT HAS HOSPICE REFERRAL PENDING WITH POSSIBLE DISCHARGE HOME ON HOSPICE. PT IS CURRENTLY RESTING WITH BED ALARM ON, BED IN LOWEST POSITION, AND CALL LIGHT WITHIN REACH.
--- NOTE | 2023-07-23 09:21 | NUR ---
Comfort Care Visit Spoke with FADIA Byrne, Primary RN Cat and discussed case. Pt up to the bathroom with assistance and FWW this AM. Pt mostly sleeps throughout the day. Pt is incontinent most of the time and requires assistance with bathing and dressing. Pt resting in bed with her eyes closed upon arrival. Pt appears comfortable with no S/S of distress at this time. Pt's daughter Azul at bedside. Offered therapeutic listening as Azul reports Pt and Pt's [facility]. She reports seeing a significant decline in Pt's ability to function over the last month. She reports Pt has fair appetite and requires assitance with cutting her meat and setting her tray up. Pt does mostly sleep now. Engaged in therapeutic conversation regarding hospice agencies to choose from. Daughter Azul reports plan to discuss further with her spouse. Azul expresses appreciation and reports no concerns at this time. Spoke with Dr Dunlap and discussed case. Palliative Care will remain available
--- NOTE | 2023-07-23 17:17 | NUR ---
SHIFT SUMMARY PT RESPONDS TO VERBAL STIMULI AND IS ORIENTED TO PERSON AND SELF. PT SLEPT MOST OF SHIFT, OCCASIONALLY WAKING UP TO USE THE COMMODE OR JOIN FAMILY MEMBERS CONVERSATIONS. PT WAS ABLE TO CONVERSE COHERENTLY WITH FAMILY WHEN ALERT. NO ACUTE EVENTS OCCURED DURING MY SHIFT, POSSIBLE DISCHARGE EITHER MONDAY OR MONDAY (07/24-). PT LEFT IN A POSITION OF SAFETY WITH FALL PRECAUTIONS IN PLACE AND CALL LIGHT WITHIN REACH.
--- NOTE | 2023-07-24 03:11 | NUR ---
FOREIGN STUDENT ADVISER TEACHER SUMMARY REMAINS ON COMFORT CARE. INCONT OF URINE A FEW TIMES, CHANGED, CLEANED AND REPOSITIONED. ABLE TO REPOSITION SELF, WAS NOTED TO SIT UP AT BEDSIDE. VOICED A FEW WORDS, AND WAS ASSISTED BACK INTO BED AND CHANGED SHE WAS INCONT OF URINE. CURRENTLY RESTING QUIETLY. RESPS EVEN. NO NOTED S/S ACUTE DISTRESS. CALL LIGHT IN REACH. HOB ELEVATED FOR COMFORT. RAILS UP X 2. WILL CONTINUE TO MONITOR
--- NOTE | 2023-07-24 15:35 | NUR ---
Palliative Care Visit Called to room for symptom management. Rowan is having excess oral secretions with saliva pooling. Primary RN had suction set up. Dtr, Azul demostrated oral care. Ins/Exp wheeze with gurgle audible to right upper bronchus. This RN advised primary RN to administer scopalamine patch and atropine drops for secretions. Also advised, lorazepam be administered for mild agitation and nausea. Theraputic listening and gentle education surrounding palliative care and hospice care. Pt and dtr both verbalize d/c plan is for Pt to go home with her daughter and hospice care. privacy manager updated with pt request for discharge location (dtr's) and request for suction to be added to hospice equipment list. Will remain available for future needs.
[2023-07-24 17:18] VITALS: BP 122/64
--- NOTE | 2023-07-24 17:56 | NUR ---
PT HAS BEEN COMFORTABLE MOST OF THE DAY WITH DAUGHTERS INTERACTING AND BEING INVOLVED WITH CARE. PT DID HAVE AND EPISODE OF EMESIS AFTER PT WAS EATING LUNCH AND WAS TREATED PER EMAR. THIS WAS NOT RESOLVING AND SUCTIONS WAS ADDED AND THEN PALLIATIVE CARE NOTIFIED ON RECOMMENDATIONS TO RESOLVE SALIVA PROBLEM. PT WAS TREATED PER EMAR INSTRUCTED BY PALLIATIVE CARE AND THIS SEEMS TO HAVE BEEN EFFECTIVE FOR COMFORT. PT CAN BE IMPULSIVE AND IS BETTER WITH FAMILY AT BEDSIDE. PT IS A TWO PERSON TO BEDSIDE COMMODE. CALL LIGHT IS WITHIN REACH AND BED ALARM IN PLACE WILL CONTINUE TO MONITOR.
--- NOTE | 2023-07-25 01:46 | NUR ---
NOTE; NOTIFIED FAMILY OF PTS PASSING, PTS DAUGHTER AND SPOUSE. ALSO NOTIFIED THE HOSPITALIST OF PTS PASSING. PTS TIME OF WAS 0120, CONFIRMED W/ SELMA FLYNN.
--- NOTE | 2023-07-25 03:36 | NUR ---
Spiritual Care Callback - [facility] Pt. had passed and two daughters are at bedside. Facilitated a life review. Pt. was mandaeism, but family welcomed prayers from this buddhist surface logging systems logger. Blessed the Pt. and prayed for family. Family displayed evidence of appropriate grief and verbalized gratitude for the spiritual care visit and prayer.Family has chosen [facility] for their home.
== END 2023-07-25 01:20 | DRG 689 ==
LOC: ER 13:56 → MEDS 13:57
PROVIDERS: Emergency Medicine; ADMIT Student in an Organized Health Care Education/Training Program
DX: N39.0 Urinary tract infection, site not specified (principal); G92.8 Other toxic encephalopathy; I48.20 Chronic atrial fibrillation, unspecified; F01.C11 Vascular dementia, severe, with agitation; N17.9 Acute kidney failure, unspecified; B96.20 Unspecified Escherichia coli [E. coli] as the cause of diseases classified elsewhere; J44.9 Chronic obstructive pulmonary disease, unspecified; Z51.5 Encounter for palliative care; Z66 Do not resuscitate; E78.5 Hyperlipidemia, unspecified; N18.30 Chronic kidney disease, stage 3 unspecified; I12.9 Hypertensive chronic kidney disease with stage 1 through stage 4 chronic kidney disease, or unspecified chronic kidney disease; I25.10 Atherosclerotic heart disease of native coronary artery without angina pectoris; Z88.0 Allergy status to penicillin; Z79.01 Long term (current) use of anticoagulants; Z79.52 Long term (current) use of systemic steroids; Z87.891 Personal history of nicotine dependence; Z95.2 Presence of prosthetic heart valve; Z78.1 Physical restraint status; Z74.01 Bed confinement status; S09.90XA Unspecified injury of head, initial encounter; W18.30XA Fall on same level, unspecified, initial encounter; Z79.899 Other long term (current) drug therapy
CPT/HCPCS: 36415; 51701; 70450; 72125; 73560-LT; 80053; 81001; 83735; 84100; 85025; 87077; 87086; 87186; 93005; 93010; 96360-59; 96361; 96365; 96372; 96375; 99284-25; 99285-25; A9270; G0378; J0696; J1630; J2060; J2405; J3010; J7030; J7040; J7120